=== PATIENT | female | born 1980 | race Caucasian/White ===

== ENCOUNTER → 2016-05-09 | Outpatient (CLI) | payer OTHER ==
[~2016-05-09] MED LIST: BACIPOW8 TOP; LIDOCAINE 1% MDV 20ML VIAL As Ordered ONE
--- NOTE | 2016-05-09 16:22 | REP ---
ULTRASOUND GUIDED RIGHT THYROID BIOPSY: The procedure was performed under the direct supervision of Dr. Allen. The patient has a history of a 1 cm nodule in the right thyroid seen on a previous CT scan dated 03/07/2016 as well as a previous CT scan performed on 11/08/2015 and a previous ultrasound dated 11/23/2015. The risks and benefits of the procedure were explained to the patient and informed consent was obtained. The right thyroid nodule was localized using ultrasound guidance. The skin was prepped and draped in a sterile fashion. 1% Xylocaine was used as a local anesthetic. Using ultrasound guidance a 22-gauge needle was inserted and advanced into the nodule. Approximately 1 mL of orange-colored fluid was withdrawn. The nodule completely collapsed. The patient tolerated the procedure well and there were no immediate complications. After the appropriate amount of monitored convalescence the patient was discharged from the department. Reviewed by KAUR Magallon 05/09/2016 04:57 PEdited and Signed by Forrest Allen MD 05/09/2016 05:30 P
--- NOTE | 2016-05-10 04:19 | REP ---
Clinical: Follow up thyroid cyst/nodules. Technique: Real time paula scale and color evaluation using linear high frequency transducer. Comparison: 11/23/2015. Findings: Comparison with prior examination the thyroid gland and scattered cysts/nodules are essentially unchanged. Right thyroid lobe measures 5.2 x 1.5 x 2.1 cm with a simple upper pole cyst measuring 1.1 x 2.0 x 0.8 cm and posterior mid pole nodule measuring 7.3 x 9.7 x 7.0 mm. Left thyroid lobe measures 4.6 x 1.8 x 1.7 cm demonstrating few scattered cysts/nodules up to 4 mm as well as stable lower pole nodule measuring 6.6 x 8.4 x 6.0 mm. Impression: Thyroid gland with right upper pole cyst and few scattered nodules essentially unchanged from prior examination. Signed by Nate Nielson MD 05/10/2016 04:10 A
== END ==
LOC: M RAD 11:59
DX: E04.1 Nontoxic single thyroid nodule (principal)

== ENCOUNTER 2016-05-19 07:08 | Emergency (ER) | payer OTHER ==
[~2016-05-19 07:08] MED LIST changes: -LIDOCAINE 1% MDV 20ML VIAL As Ordered ONE
--- NOTE | 2016-05-19 09:00 | REPUSA ---
CLINICAL HISTORY: Neck pain. TECHNIQUE: Multiple axial images were obtained through the cervical spine. Images were also reconstru cted in coronal and sagittal planes. The study was performed without IV contrast. COMMENTS: There is no fracture or spondylolisthesis visualized. The paraspinal soft tissues are unremarkable. T here are no lytic or blastic lesions. Straightening of cervical lordosis is seen, suggesting muscular spasm. No significant disk herniation is noted at any level. Canal and foramina remain patent. IMPRESSION: 1. No fracture or spondylolisthesis. 2. Straightening of cervical lordosis is seen, suggesting muscular spasm. Thank you for your kind referral of this patient.
--- NOTE | 2016-05-19 09:10 | REPUSA ---
CLINICAL HISTORY: Trauma. TECHNIQUE: Multiple axial CT images were obtained through the thoracic spine without IV contrast mate rial. MPR coronal and sagittal sequences were obtained. COMMENTS: There is no fracture visualized. The paraspinal soft tissues are unremarkable. There are no lytic or blastic lesions. The paravertebral soft tissue space is normal. IMPRESSION: Normal study. Thank you for your kind referral of this patient.
[2016-05-19] MEDS ORDERED: PERCOCET 5MG/325MG TAB As Ordered ONE (09:40)
[2016-05-19] MEDS ORDERED: ONDANSETRON 4 MG ORAL DISINTEGRATING TAB (S0181) As Ordered ONE (09:40)
--- NOTE | 2016-05-19 09:49 | EDDOCDS ---
Physician Documentation [facility] Name: Jacqueline Irene Age: 36 yrs Sex: Female : 1980 Arrival Date: 05/19/2016 Time: 07:08 Bed 11 Private MD: Disposition: 05/19/16 09:17 Discharged to Home/Self Care. Impression: Superficial injury of head, Alcohol abuse with intoxication. - Condition is Stable. - Discharge Instructions: Head Injury, Adult, Alcohol Intoxication, [id number]. - Medication Reconciliation, Local Pharmacy Hours form. - Follow up: Private Physician; When: Call to arrange an appointment; Reason: Continuance of care. - Problem is new. - Symptoms have improved. Historical: - Allergies: no known allergies; - Home Meds: 1. Lyrica 200mg Oral 1 cap 2 times per day 2. Zanaflex Oral 1 cap as needed (Last dose: Unknown) 3. buspirone 10 mg Oral tab 1 tab 2 times per day (Last dose: Unknown) - PMHx: Fibromyalgia; Mitral valve prolapse; - PSHx: Tubal ligation; - Social history: Smoking status: Patient uses tobacco products, current every day smoker. No barriers to communication noted, The patient speaks fluent Japanese, Speaks appropriately for age, Patient uses alcohol Patient/guardian denies using street drugs. - Family history: Not pertinent. - : The pt / caregiver states he / she is not on anticoagulants. Home medication list is obtained from the patient. - Exposure Risk Screening:: None identified. 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 2 in. (157.48 cm) (R); Pain 8/10; 07:25 BP 126 / 59 (auto/); ead 07:26 Pulse 100 MON; Resp 16; Pulse Ox 97% on R/A; ead 09:23 BP 105 / 67; Pulse 88; Resp 18; Temp 98.2(O); Pulse Ox 97% on R/A; Pain 5/10; rn1 07:15 Body Mass Index 24.51 (60.78 kg, 157.48 cm) jrd Carlos Coma Score: 07:12 Eye Response: spontaneous(4). Verbal Response: oriented(5). Motor Response: obeys ead commands(6). Total: 15. MDM: 07:22 Apply Carrie Collar to Patient. ordered. fg 07:22 CT Head Without Contrast Ordered. EDMS 07:22 CT Spine,Cervical W/o Contrast Ordered. EDMS 07:22 CT Spine,Thoracic W/o Contrast Ordered. EDMS 08:15 Financial registration complete. mm15 08:40 [facility] Payment Agreement was scanned into [employer] and attached to record. mm15 09:00 oxyCODONE-acetaminophen 5 mg-325 mg 1 tabs PO once ordered. fg 09:00 Ondansetron 4 mg PO once ordered. fg 09:37 T-Sheet-- Draft Copy was scanned into [employer] and attached to record. seh Administered Medications: 09:44 Drug: Ondansetron 4 mg [ondansetron HCl 4 mg tablet (1 tabs)] Route: PO; ead 09:46 Drug: oxyCODONE-acetaminophen 1 tabs [oxycodone-acetaminophen 5 mg-325 mg tablet (1 ead tabs)] Route: PO; Signatures: Dispatcher MedHost EDNC Bryant Coates mm15 Courtney Pina,RN RN Sayra Garcia MD MD fg Hoffert, Sarah seh The chart was reviewed and I authenticate all verbal orders and agree with the evaluation and treatment provided.Attachments: 08:40 [facility] Payment Agreement mm15 09:37 T-Sheet-- Draft Copy seh MTDD
--- NOTE | 2016-05-19 09:49 | EDDOCDS ---
Nurse's Notes [facility] Name: Jacqueline Irene Age: 36 yrs Sex: Female : 1980 Arrival Date: 05/19/2016 Time: 07:08 Bed 11 Private MD: Diagnosis: Superficial injury of head;Alcohol abuse with intoxication Presentation: 05/19 07:12 Presenting complaint: Patient states: Pt climbed in through her window last night and ead fell and hit her head on her floor. Reports LOC. Unknown time of incident. Pt reported consuming approx 6-9 alcoholic beverages last night and is unsure of some details. unknown length of LOC. Pt estimates 15-20 minutes. Mechanism of Injury: The problem was sustained at home, resulted from a fall. Adult Sepsis Screening: The patient does not have new or worsening altered mentation. Patient's respiratory rate is less than 22. Systolic blood pressure is greater than 100. Patient has a qSOFA score of 0- Negative Sepsis Screen. Suicide/Homicide risk assessment- the patient denies having any suicidal and/or homicidal ideations and does not present with any other emotional, behavioral or mental health complaints. Status: Patient is not a armored service technician or dependent. Transition of care: patient was not received from another setting of care. 07:12 Acuity: TIMOTEO Level 3 ead 07:12 Method Of Arrival: Ambulance ead Triage Assessment: 07:17 General: Appears in no apparent distress, uncomfortable, Behavior is appropriate for ead age, cooperative. Pain: Location: left frontal area and left temporal area Pain currently is 8 out of 10 on a pain scale. HIV screening NA for this visit Offered previously. The patient is triaged at the bedside. See Assessment in Nurses Notes section of ED record. Neurological: Level of Consciousness is awake, alert, obeys commands, Oriented to person, place, time, Reports headache. Respiratory: Airway is patent Respiratory effort is even, unlabored. GI: Denies nausea, vomiting, pain. Derm: Skin is pink, warm & dry. Musculoskeletal: Reports pain in back of head and back of neck. 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 Lyrica 200mg Oral 1 cap 2 times per day 2. Zanaflex Oral 1 cap as needed (Last dose: Unknown) 3. buspirone 10 mg Oral tab 1 tab 2 times per day (Last dose: Unknown) - PMHx: Fibromyalgia; Mitral valve prolapse; - PSHx: Tubal ligation; - Social history: Smoking status: Patient uses tobacco products, current every day smoker. No barriers to communication noted, The patient speaks fluent Syrian, Speaks appropriately for age, Patient uses alcohol Patient/guardian denies using street drugs. - Family history: Not pertinent. - : The pt / caregiver states he / she is not on anticoagulants. Home medication list is obtained from the patient. - Exposure Risk Screening:: None identified. Screenin:19 Screening information is obtained from the patient. Fall risk: No risks identified. ead Assistance ADL's: requires no assistance with activities of daily living. Abuse/DV Screen: The patient / caregiver reports he/she is: not in a situation that causes fear, pain or injury. Nutritional screening: No deficits noted. Advance Directives: Currently, there is no health care proxy. There is no active DNR order. There is no living will. There is no Power of School Vocational Educator. home support is adequate. Assessment: 07:19 General: see triage assessment. ead 08:00 General: Appears in no apparent distress, Behavior is cooperative. Neurological: Level ead of Consciousness is awake, alert. Respiratory: Airway is patent Respiratory effort is even, unlabored. Derm: Skin is pink, warm & dry. 09:00 General: Appears in no apparent distress, to be sleeping. Respiratory: Airway is patent ead Respiratory effort is even, unlabored. Derm: Skin is pink, warm & dry. 09:46 General: Appears in no apparent distress, comfortable, Behavior is appropriate for age, ead cooperative. Neurological: Level of Consciousness is awake, alert, obeys commands, Oriented to person, place, time. Respiratory: Airway is patent Respiratory effort is even, unlabored. Derm: Skin is pink, warm & dry. Vital Signs: 07:15 BP 117 / 72 RA Sitting (auto/reg); Pulse 84; Resp 18; Temp 96.2(O); Pulse Ox 97% on jrd R/A; Weight 60.78 kg (R); Height 5 ft. 2 in. (157.48 cm) (R); Pain 8/10; 07:25 BP 126 / 59 (auto/); ead 07:26 Pulse 100 MON; Resp 16; Pulse Ox 97% on R/A; ead 09:23 BP 105 / 67; Pulse 88; Resp 18; Temp 98.2(O); Pulse Ox 97% on R/A; Pain 5/10; rn1 07:15 Body Mass Index 24.51 (60.78 kg, 157.48 cm) jrd Vitals: 07:08 Log In Time N/A - ambulance arrival. ead [place] Coma Score: 07:12 Eye Response: spontaneous(4). Verbal Response: oriented(5). Motor Response: obeys ead commands(6). Total: 15. ED Course: 07:09 Patient visited by Eliz Hughes, Tip Puncher. deg 07:09 Patient moved to Waiting deg 07:10 Jacqueline Ortega RN is Primary Nurse. deg 07:10 Courtney Pina RN is Primary Nurse. deg 07:10 Patient moved to 11 deg 07:15 Patient visited by Mike Menendez PCA. jrd 07:15 Triage Initiated ead 07:16 Sayra Banda MD is Attending Physician. fg 07:16 Patient visited by Sayra Banda MD. fg 07:19 The patient / caregiver is instructed regarding the plan of care and ED course. Patient ead has correct armband on for positive identification. Bed in low position. Call light in reach. Side rails up X2. Pulse ox on. NIBP on. 07:30 Patient visited by Courtney Pina RN. ead 07:30 Carrie cervical collar applied. ead 08:27 Primary Nurse role handed off by Jacqueline Ortega RN jjr 08:40 [facility] Payment Agreement was scanned into Compute[employer] and attached to record. mm15 08:41 Patient visited by Courtney Pina RN. ead 09:06 CT Head Without Contrast Returned. EDMS 09:06 CT Spine,Cervical W/o Contrast Returned. EDMS 09:37 T-Sheet-- Draft Copy was scanned into ComputeNext and attached to record. seh 09:42 CT Spine,Thoracic W/o Contrast Returned. EDMS 09:46 No IV's were initiated during this patient's visit. No procedures done that require ead assistance. Administered Medications: 09:44 Drug: Ondansetron 4 mg [ondansetron HCl 4 mg tablet (1 tabs)] Route: PO; ead 09:46 Drug: oxyCODONE-acetaminophen 1 tabs [oxycodone-acetaminophen 5 mg-325 mg tablet (1 ead tabs)] Route: PO; Order Results: Radiology Order: CT Head Without Contrast Test: CT Head Without Contrast REASON FOR EXAMINATION: barreto after fall, etoh; ; CLINICAL HISTORY: Head trauma.; TECHNIQUE: Multiple axial brain CT scan sections were obtained from base to vertex without contrast a; dministration.; COMMENTS:; There is no evidence of skull fracture.; The study shows normal configuration of sella turcica. There are no intra or extra-axial collections.; There is no mass effect or midline shift. There is no evidence of hematoma formation. No hydrocephal; us is present. No abnormal calcifications are noted.; No significant abnormalities are seen either in the posterior fossa or supratentorial compartment.; The sinuses and mastoid air cells are patent.; IMPRESSION:; No evidence of acute intracranial pathology. No intracranial hemorrhage or skull fracture.; Thank you for your kind referral of this patient.; ; Radiology Order: CT Spine,Cervical W/o Contrast Test: CT Spine,Cervical W/o Contrast REASON FOR EXAMINATION: neck pain after fall; ; CLINICAL HISTORY: Neck pain.; TECHNIQUE: Multiple axial images were obtained through the cervical spine. Images were also reconstru; cted in coronal and sagittal planes. The study was performed without IV contrast.; COMMENTS:; There is no fracture or spondylolisthesis visualized. The paraspinal soft tissues are unremarkable. T; here are no lytic or blastic lesions.; Straightening of cervical lordosis is seen, suggesting muscular spasm.; No significant disk herniation is noted at any level. Canal and foramina remain patent.; IMPRESSION:; 1. No fracture or spondylolisthesis.; 2. Straightening of cervical lordosis is seen, suggesting muscular spasm.; Thank you for your kind referral of this patient.; ; Radiology Order: CT Spine,Thoracic W/o Contrast Test: CT Spine,Thoracic W/o Contrast REASON FOR EXAMINATION: back pain after fall; ; CLINICAL HISTORY: Trauma.; TECHNIQUE: Multiple axial CT images were obtained through the thoracic spine without IV contrast mate; rial. MPR coronal and sagittal sequences were obtained.; COMMENTS:; There is no fracture visualized. The paraspinal soft tissues are unremarkable. There are no lytic or; blastic lesions.; The paravertebral soft tissue space is normal.; IMPRESSION:; Normal study.; Thank you for your kind referral of this patient.; ; Outcome: 09:17 Discharge ordered by Provider. fg 09:46 Discharge Assessment: Patient awake and alert. obeys commands, Oriented to person, ead place and time. patient administered narcotics - yes. Pt provided with safe discharge. The following High Risk Discharge criteria are identified: None. Discharged to home ambulatory, with friend. Condition: stable. Discharge instructions given to patient, Instructed on discharge instructions, follow up and referral plans. Demonstrated understanding of instructions, Pt was receptive of discharge instructions/ teaching. CT Study completed. Property sent home with patient. 09:48 Patient left the ED. ead Signatures: Dispatcher MedHost EDMS Eliz Hughes, Tip Puncher Unit deg Anna Culp RN RN jjr McGrath, Marlynn mm15 Courtney Pina RN RN ead Donoghue, Joseph, PCA PCA jrd Newman, Robert rn1 Sayra Banda MD MD fg Hoffert, Sarah seh MTDD
--- NOTE | 2016-05-21 10:49 | EDDOCDS ---
Physician Documentation [facility] Name: Jacqueline Irene Age: 36 yrs Sex: Female : 1980 Arrival Date: 05/19/2016 Time: 07:08 Bed 11 Private MD: Disposition: 05/19/16 09:17 Discharged to Home/Self Care. Impression: Superficial injury of head, Alcohol abuse with intoxication. - Condition is Stable. - Discharge Instructions: Head Injury, Adult, Alcohol Intoxication, [id number]. - Medication Reconciliation, Local Pharmacy Hours form. - Follow up: Private Physician; When: Call to arrange an appointment; Reason: Continuance of care. - Problem is new. - Symptoms have improved. Historical: - Allergies: no known allergies; - Home Meds: 1. Lyrica 200mg Oral 1 cap 2 times per day 2. Zanaflex Oral 1 cap as needed (Last dose: Unknown) 3. buspirone 10 mg Oral tab 1 tab 2 times per day (Last dose: Unknown) - PMHx: Fibromyalgia; Mitral valve prolapse; - PSHx: Tubal ligation; - Social history: Smoking status: Patient uses tobacco products, current every day smoker. No barriers to communication noted, The patient speaks fluent Tunisian, Speaks appropriately for age, Patient uses alcohol Patient/guardian denies using street drugs. - Family history: Not pertinent. - : The pt / caregiver states he / she is not on anticoagulants. Home medication list is obtained from the patient. - Exposure Risk Screening:: None identified. 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 2 in. (157.48 cm) (R); Pain 8/10; 07:25 BP 126 / 59 (auto/); ead 07:26 Pulse 100 MON; Resp 16; Pulse Ox 97% on R/A; ead 09:23 BP 105 / 67; Pulse 88; Resp 18; Temp 98.2(O); Pulse Ox 97% on R/A; Pain 5/10; rn1 07:15 Body Mass Index 24.51 (60.78 kg, 157.48 cm) jrd Carlos Coma Score: 07:12 Eye Response: spontaneous(4). Verbal Response: oriented(5). Motor Response: obeys ead commands(6). Total: 15. MDM: 07:22 Apply Carrie Collar to Patient. ordered. fg 07:22 CT Head Without Contrast Ordered. EDMS 07:22 CT Spine,Cervical W/o Contrast Ordered. EDMS 07:22 CT Spine,Thoracic W/o Contrast Ordered. EDMS 08:15 Financial registration complete. mm15 08:40 [facility] Payment Agreement was scanned into Widgetbox and attached to record. mm15 09:00 oxyCODONE-acetaminophen 5 mg-325 mg 1 tabs PO once ordered. 09:00 Ondansetron 4 mg PO once ordered. 09:37 T-Sheet-- Draft Copy was scanned into Widgetbox and attached to record. se 11:14 Radiology Report was scanned into Widgetbox and attached to record. gb Administered Medications: 09:44 Drug: Ondansetron 4 mg [ondansetron HCl 4 mg tablet (1 tabs)] Route: PO; ead 09:46 Drug: oxyCODONE-acetaminophen 1 tabs [oxycodone-acetaminophen 5 mg-325 mg tablet (1 ead tabs)] Route: PO; Signatures: Dispatcher MedHost EDMA Abby Cleveland, Reg Reg judie Bryant Coates mm15 Courtney Pina RN RN ead Gill, Frances, MD MD fg Hoffert, Sarah [facility] The chart was reviewed and I authenticate all verbal orders and agree with the evaluation and treatment provided.Attachments: 08:40 [facility] Payment Agreement mm15 09:37 T-Sheet-- Draft Copy se Chart Complete MTDD
--- NOTE | 2016-05-21 10:49 | EDDOCDS ---
Physician Documentation [facility] Name: Jacqueline Irene Age: 36 yrs Sex: Female : 1980 Arrival Date: 05/19/2016 Time: 07:08 Bed 11 Private MD: Disposition: 05/19/16 09:17 Discharged to Home/Self Care. Impression: Superficial injury of head, Alcohol abuse with intoxication. - Condition is Stable. - Discharge Instructions: Head Injury, Adult, Alcohol Intoxication, [id number]. - Medication Reconciliation, Local Pharmacy Hours form. - Follow up: Private Physician; When: Call to arrange an appointment; Reason: Continuance of care. - Problem is new. - Symptoms have improved. Historical: - Allergies: no known allergies; - Home Meds: 1. Lyrica 200mg Oral 1 cap 2 times per day 2. Zanaflex Oral 1 cap as needed (Last dose: Unknown) 3. buspirone 10 mg Oral tab 1 tab 2 times per day (Last dose: Unknown) - PMHx: Fibromyalgia; Mitral valve prolapse; - PSHx: Tubal ligation; - Social history: Smoking status: Patient uses tobacco products, current every day smoker. No barriers to communication noted, The patient speaks fluent Romanian, Speaks appropriately for age, Patient uses alcohol Patient/guardian denies using street drugs. - Family history: Not pertinent. - : The pt / caregiver states he / she is not on anticoagulants. Home medication list is obtained from the patient. - Exposure Risk Screening:: None identified. 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 2 in. (157.48 cm) (R); Pain 8/10; 07:25 BP 126 / 59 (auto/); ead 07:26 Pulse 100 MON; Resp 16; Pulse Ox 97% on R/A; ead 09:23 BP 105 / 67; Pulse 88; Resp 18; Temp 98.2(O); Pulse Ox 97% on R/A; Pain 5/10; rn1 07:15 Body Mass Index 24.51 (60.78 kg, 157.48 cm) jrd Carlos Coma Score: 07:12 Eye Response: spontaneous(4). Verbal Response: oriented(5). Motor Response: obeys ead commands(6). Total: 15. MDM: 07:22 Apply Carrie Collar to Patient. ordered. fg 07:22 CT Head Without Contrast Ordered. EDMS 07:22 CT Spine,Cervical W/o Contrast Ordered. EDMS 07:22 CT Spine,Thoracic W/o Contrast Ordered. EDMS 08:15 Financial registration complete. mm15 08:40 [facility] Payment Agreement was scanned into CoupFlip and attached to record. mm15 09:00 oxyCODONE-acetaminophen 5 mg-325 mg 1 tabs PO once ordered. 09:00 Ondansetron 4 mg PO once ordered. 09:37 T-Sheet-- Draft Copy was scanned into [employer]oup[employer]ip and attached to record. se 11:14 Radiology Report was scanned into Coup[employer]ip and attached to record. gb Administered Medications: 09:44 Drug: Ondansetron 4 mg [ondansetron HCl 4 mg tablet (1 tabs)] Route: PO; ead 09:46 Drug: oxyCODONE-acetaminophen 1 tabs [oxycodone-acetaminophen 5 mg-325 mg tablet (1 ead tabs)] Route: PO; Signatures: Dispatcher MedHost EDNH Abby Cleveland, Reg Reg judie Bryant Coates mm15 Courtney Pina RN RN ead Gill, Frances, MD MD fg Hoffert, Sarah [facility] The chart was reviewed and I authenticate all verbal orders and agree with the evaluation and treatment provided.Attachments: 08:40 [facility] Payment Agreement mm15 09:37 T-Sheet-- Draft Copy se Chart Complete MTDD
--- NOTE | 2016-05-21 10:49 | EDDOCDS ---
Nurse's Notes [facility] Name: Jacqueline Irene Age: 36 yrs Sex: Female : 1980 Arrival Date: 05/19/2016 Time: 07:08 Bed 11 Private MD: Diagnosis: Superficial injury of head;Alcohol abuse with intoxication Presentation: 05/19 07:12 Presenting complaint: Patient states: Pt climbed in through her window last night and ead fell and hit her head on her floor. Reports LOC. Unknown time of incident. Pt reported consuming approx 6-9 alcoholic beverages last night and is unsure of some details. unknown length of LOC. Pt estimates 15-20 minutes. Mechanism of Injury: The problem was sustained at home, resulted from a fall. Adult Sepsis Screening: The patient does not have new or worsening altered mentation. Patient's respiratory rate is less than 22. Systolic blood pressure is greater than 100. Patient has a qSOFA score of 0- Negative Sepsis Screen. Suicide/Homicide risk assessment- the patient denies having any suicidal and/or homicidal ideations and does not present with any other emotional, behavioral or mental health complaints. 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 Transition of care: patient was not received from another setting of care. 07:12 Acuity: TIMOTEO Level 3 ead 07:12 Method Of Arrival: Ambulance ead Triage Assessment: 07:17 General: Appears in no apparent distress, uncomfortable, Behavior is appropriate for ead age, cooperative. Pain: Location: left frontal area and left temporal area Pain currently is 8 out of 10 on a pain scale. HIV screening NA for this visit Offered previously. The patient is triaged at the bedside. See Assessment in Nurses Notes section of ED record. Neurological: Level of Consciousness is awake, alert, obeys commands, Oriented to person, place, time, Reports headache. Respiratory: Airway is patent Respiratory effort is even, unlabored. GI: Denies nausea, vomiting, pain. Derm: Skin is pink, warm & dry. Musculoskeletal: Reports pain in back of head and back of neck. 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 Lyrica 200mg Oral 1 cap 2 times per day 2. Zanaflex Oral 1 cap as needed (Last dose: Unknown) 3. buspirone 10 mg Oral tab 1 tab 2 times per day (Last dose: Unknown) - PMHx: Fibromyalgia; Mitral valve prolapse; - PSHx: Tubal ligation; - Social history: Smoking status: Patient uses tobacco products, current every day smoker. No barriers to communication noted, The patient speaks fluent Chinese, Speaks appropriately for age, Patient uses alcohol Patient/guardian denies using street drugs. - Family history: Not pertinent. - : The pt / caregiver states he / she is not on anticoagulants. Home medication list is obtained from the patient. - Exposure Risk Screening:: None identified. Screenin:19 Screening information is obtained from the patient. Fall risk: No risks identified. ead Assistance ADL's: requires no assistance with activities of daily living. Abuse/DV Screen: The patient / caregiver reports he/she is: not in a situation that causes fear, pain or injury. Nutritional screening: No deficits noted. Advance Directives: Currently, there is no health care proxy. There is no active DNR order. There is no living will. 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 home support is adequate. Assessment: 07:19 General: see triage assessment. ead 08:00 General: Appears in no apparent distress, Behavior is cooperative. Neurological: Level ead of Consciousness is awake, alert. Respiratory: Airway is patent Respiratory effort is even, unlabored. Derm: Skin is pink, warm & dry. 09:00 General: Appears in no apparent distress, to be sleeping. Respiratory: Airway is patent ead Respiratory effort is even, unlabored. Derm: Skin is pink, warm & dry. 09:46 General: Appears in no apparent distress, comfortable, Behavior is appropriate for age, ead cooperative. Neurological: Level of Consciousness is awake, alert, obeys commands, Oriented to person, place, time. Respiratory: Airway is patent Respiratory effort is even, unlabored. Derm: Skin is pink, warm & dry. Vital Signs: 07:15 BP 117 / 72 RA Sitting (auto/reg); Pulse 84; Resp 18; Temp 96.2(O); Pulse Ox 97% on jrd R/A; Weight 60.78 kg (R); Height 5 ft. 2 in. (157.48 cm) (R); Pain 8/10; 07:25 BP 126 / 59 (auto/); ead 07:26 Pulse 100 MON; Resp 16; Pulse Ox 97% on R/A; ead 09:23 BP 105 / 67; Pulse 88; Resp 18; Temp 98.2(O); Pulse Ox 97% on R/A; Pain 5/10; rn1 07:15 Body Mass Index 24.51 (60.78 kg, 157.48 cm) jrd Vitals: 07:08 Log In Time N/A - ambulance arrival. ead [place] Coma Score: 07:12 Eye Response: spontaneous(4). Verbal Response: oriented(5). Motor Response: obeys ead commands(6). Total: 15. ED Course: 07:09 Patient visited by Eliz Hughes, District Manager. deg 07:09 Patient moved to Waiting deg 07:10 Jacqueline Ortega RN is Primary Nurse. deg 07:10 Courtney Pina RN is Primary Nurse. deg 07:10 Patient moved to 11 deg 07:15 Patient visited by Mike Menendez PCA. jrd 07:15 Triage Initiated ead 07:16 Sayra Banda MD is Attending Physician. fg 07:16 Patient visited by Sayra Banda MD. fg 07:19 The patient / caregiver is instructed regarding the plan of care and ED course. Patient ead has correct armband on for positive identification. Bed in low position. Call light in reach. Side rails up X2. Pulse ox on. NIBP on. 07:30 Patient visited by Courtney Pina RN. ead 07:30 Carrie cervical collar applied. ead 08:27 Primary Nurse role handed off by Jacqueline Ortega RN jjr 08:40 [facility] Payment Agreement was scanned into [employer] and attached to record. mm15 08:41 Patient visited by Courtney Pina RN. ead 09:06 CT Head Without Contrast Returned. EDMS 09:06 CT Spine,Cervical W/o Contrast Returned. EDMS 09:37 T-Sheet-- Draft Copy was scanned into HomeJ[employer] and attached to record. seh 09:42 CT Spine,Thoracic W/o Contrast Returned. EDMS 09:46 No IV's were initiated during this patient's visit. No procedures done that require ead assistance. 11:14 Radiology Report was scanned into MEDHOST and attached to record. gb Administered Medications: 09:44 Drug: Ondansetron 4 mg [ondansetron HCl 4 mg tablet (1 tabs)] Route: PO; ead 09:46 Drug: oxyCODONE-acetaminophen 1 tabs [oxycodone-acetaminophen 5 mg-325 mg tablet (1 ead tabs)] Route: PO; Order Results: Radiology Order: CT Head Without Contrast Test: CT Head Without Contrast REASON FOR EXAMINATION: barreto after fall, etoh; ; CLINICAL HISTORY: Head trauma.; TECHNIQUE: Multiple axial brain CT scan sections were obtained from base to vertex without contrast a; dministration.; COMMENTS:; There is no evidence of skull fracture.; The study shows normal configuration of sella turcica. There are no intra or extra-axial collections.; There is no mass effect or midline shift. There is no evidence of hematoma formation. No hydrocephal; us is present. No abnormal calcifications are noted.; No significant abnormalities are seen either in the posterior fossa or supratentorial compartment.; The sinuses and mastoid air cells are patent.; IMPRESSION:; No evidence of acute intracranial pathology. No intracranial hemorrhage or skull fracture.; Thank you for your kind referral of this patient.; ; Radiology Order: CT Spine,Cervical W/o Contrast Test: CT Spine,Cervical W/o Contrast REASON FOR EXAMINATION: neck pain after fall; ; CLINICAL HISTORY: Neck pain.; TECHNIQUE: Multiple axial images were obtained through the cervical spine. Images were also reconstru; cted in coronal and sagittal planes. The study was performed without IV contrast.; COMMENTS:; There is no fracture or spondylolisthesis visualized. The paraspinal soft tissues are unremarkable. T; here are no lytic or blastic lesions.; Straightening of cervical lordosis is seen, suggesting muscular spasm.; No significant disk herniation is noted at any level. Canal and foramina remain patent.; IMPRESSION:; 1. No fracture or spondylolisthesis.; 2. Straightening of cervical lordosis is seen, suggesting muscular spasm.; Thank you for your kind referral of this patient.; ; Radiology Order: CT Spine,Thoracic W/o Contrast Test: CT Spine,Thoracic W/o Contrast REASON FOR EXAMINATION: back pain after fall; ; CLINICAL HISTORY: Trauma.; TECHNIQUE: Multiple axial CT images were obtained through the thoracic spine without IV contrast mate; riaelias. MPR coronal and sagittal sequences were obtained.; COMMENTS:; There is no fracture visualized. The paraspinal soft tissues are unremarkable. There are no lytic or; blastic lesions.; The paravertebral soft tissue space is normal.; IMPRESSION:; Normal study.; Thank you for your kind referral of this patient.; ; Outcome: 09:17 Discharge ordered by Provider. fg 09:46 Discharge Assessment: Patient awake and alert. obeys commands, Oriented to person, ead place and time. patient administered narcotics - yes. Pt provided with safe discharge. The following High Risk Discharge criteria are identified: None. Discharged to home ambulatory, with friend. Condition: stable. Discharge instructions given to patient, Instructed on discharge instructions, follow up and referral plans. Demonstrated understanding of instructions, Pt was receptive of discharge instructions/ teaching. CT Study completed. Property sent home with patient. 09:48 Patient left the ED. ead Signatures: Dispatcher Med[employer] EDMS Eliz Hughes, District Manager Unit deg Abby Cleveland, Rogelio Reg Anna Owusu, RN RN Bryant Nair mm15 Courtney Pina,RN RN Mike Muller, LEVI BUILDER OPERATOR Atul Kim rn1 Sayra Banda MD MD fg Hoffert, Sarah seh Chart Complete MTDD
== END 2016-05-19 09:48 | disposition home or self-care (01) ==
LOC: M ED 07:08
DX: S09.90XA Unspecified injury of head, initial encounter (principal); W17.89XA Other fall from one level to another, initial encounter; Y92.018 Other place in single-family (private) house as the place of occurrence of the external cause; Y93.89 Activity, other specified; Y99.8 Other external cause status; F10.220 Alcohol dependence with intoxication, uncomplicated; M79.7 Fibromyalgia; I34.1 Nonrheumatic mitral (valve) prolapse; Z79.899 Other long term (current) drug therapy; F17.210 Nicotine dependence, cigarettes, uncomplicated

== ENCOUNTER 2016-06-11 23:47 | Emergency (ER) | payer OTHER ==
[2016-06-12] MEDS ORDERED: NORCO 5/325MG TABLET (BULK) As Ordered ONE (00:58)
--- NOTE | 2016-06-12 01:16 | EDDOCDS ---
Physician Documentation [facility] Name: Jacqueline Irene Age: 36 yrs Sex: Female : 1980 Arrival Date: 06/11/2016 Time: 23:47 Bed 11 Private MD: Disposition: 06/12/16 00:52 Discharged to Home/Self Care. Impression: Postconcussional syndrome. - Condition is Stable. - Discharge Instructions: Post-Concussion Syndrome. - Medication Reconciliation form. - Follow up: Juliet Manning; When: Call to arrange an appointment; Reason: Recheck today's complaints, Continuance of care, To establish care. - Problem is chronic. - Symptoms are unchanged. Historical: - Allergies: No known drug Allergies; - Home Meds: 1. Lyrica 200mg Oral 1 cap 2 times per day 2. Ambien 5 mg Oral tab 1 tab once daily 3. buspirone 10 mg Oral tab 1 tab 2 times per day patient reports stop taking medication on her own. - PMHx: Fibromyalgia; Mitral valve prolapse; - PSHx: Tubal ligation; - Social history: Smoking status: Patient uses tobacco products, heavy tobacco smoker. No barriers to communication noted, The patient speaks fluent Ukrainian, Speaks appropriately for age. - Family history: No immediate family members are acutely ill. - : The pt / caregiver states he / she is not on anticoagulants. Home medication list is obtained from the patient. - Exposure Risk Screening:: None identified. 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 1 in. (154.94 cm) (R); Pain 4/10; 06/12 00:06 BP 118 / 75 (auto/); mv5 00:08 Pulse 88 MON; Pulse Ox 97% ; mv5 00:13 BP 111 / 67 (auto/); mv5 00:14 Pulse 86 MON; Pulse Ox 97% ; mv5 00:36 BP 108 / 71 (auto/); mv5 00:37 Pulse 86 MON; Pulse Ox 97% ; mv5 01:04 Pulse 82 MON; Pulse Ox 98% ; mv5 06/11 23:49 Body Mass Index 25.89 (62.14 kg, 154.94 cm) kb5 MDM: 00:52 HYDROcodone-acetaminophen 4 pack- 5 mg-325 mg 1 packets PO Per package directions; cc10 Dispense with patient. 1 po q4h prn for pain ordered. 01:13 Financial registration complete. [facility] Administered Medications: 01:09 Drug: HYDROcodone-acetaminophen 4 pack- 1 packets [hydrocodone 5 mg-acetaminophen 325 mv5 mg tablet (1 tabs)] {Co-Signature: [email or web address] (Mady Marie RN).} Route: PO; Signatures: Maik Amezcua RN RN Mt Ramires PA-C PAArturo cc10 [place] Megan, RN RN mv5 Mady Marie RN sls1 ROGERIO
--- NOTE | 2016-06-12 01:16 | EDDOCDS ---
Nurse's Notes [facility] Name: Jacqueline Irene Age: 36 yrs Sex: Female : 1980 Arrival Date: 06/11/2016 Time: 23:47 Bed 11 Private MD: Diagnosis: Postconcussional syndrome Presentation: 06/11 23:53 Presenting complaint: Patient states: Patient reports that she has headaches, memory jmb loss, and sleep paralysis. Patient reports that the memory loss is getting worse and sleep paralysis. Patient reports headaches are new. This patient has no additional risk factors. Adult Sepsis Screening: The patient does not have new or worsening altered mentation. Patient's respiratory rate is less than 22. Systolic blood pressure is greater than 100. Patient has a qSOFA score of 0- Negative Sepsis Screen. Suicide/Homicide risk assessment- the patient denies having any suicidal and/or homicidal ideations and does not present with any other emotional, behavioral or mental health complaints. Status: Patient is not a room service associate or dependent. Transition of care: patient was not received from another setting of care. 23:53 Acuity: TIMOTEO Level 3 jmb 23:53 Method Of Arrival: Walkin/Carried/Asstd jmb Triage Assessment: 23:54 Headache History: A change in the character of the headache the patient is experiencing jmb has occured. General: Appears in no apparent distress, Behavior is appropriate for age, cooperative. Pain: Location: head Pain currently is 4 out of 10 on a pain scale. Pain began gradually Also complains of no other associated symptoms. HIV screening NA for this visit Offered previously. Neurological: Level of Consciousness is awake, alert, obeys commands, Oriented to person, place, time, Speech is normal, Facial symmetry appears normal, Facial symmetry: tongue is midline. Respiratory: Airway is patent Respiratory effort is even, unlabored, Respiratory pattern is regular, symmetrical. Derm: Skin is pink, warm & dry. 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 Lyrica 200mg Oral 1 cap 2 times per day 2. Ambien 5 mg Oral tab 1 tab once daily 3. buspirone 10 mg Oral tab 1 tab 2 times per day patient reports stop taking medication on her own. - PMHx: Fibromyalgia; Mitral valve prolapse; - PSHx: Tubal ligation; - Social history: Smoking status: Patient uses tobacco products, heavy tobacco smoker. No barriers to communication noted, The patient speaks fluent Belgian, Speaks appropriately for age. - Family history: No immediate family members are acutely ill. - : The pt / caregiver states he / she is not on anticoagulants. Home medication list is obtained from the patient. - Exposure Risk Screening:: None identified. Screenin/21 00:08 Screening information is obtained from the patient. Fall risk: No risks identified. mv5 Assistance ADL's: requires no assistance with activities of daily living. Abuse/DV Screen: The patient / caregiver reports he/she is: not in a situation that causes fear, pain or injury. Nutritional screening: No deficits noted. Advance Directives: There is no active DNR order. home support is adequate. Assessment: 00:26 General: Appears in no apparent distress, Behavior is cooperative, pleasant. Pain: mv5 Location: face, left parietal area, right parietal area, occipital area, base of the skull, left frontal area, left side of the back of head, left side of forehead, left temporal area, left occipital area, left base of the skull, right frontal area, right side of the back of head, right temporal area, right side of forehead, right occipital area and right base of the skull Pain currently is 6 out of 10 on a pain scale. Neurological: Level of Consciousness is awake, alert, Oriented to person, place, time, Moves all extremities. Speech is normal, Facial symmetry appears normal, Pupils are PERRLA. Cardiovascular: Capillary refill < 3 seconds. Respiratory: Airway is patent Respiratory effort is even, unlabored, Respiratory pattern is regular, symmetrical. Derm: Skin is pink, warm & dry. 01:06 General: Appears in no apparent distress. General: Discharge information reviewed with mv5 pt.. Pain: Pain currently is 5 out of 10 on a pain scale. Respiratory: Airway is patent Respiratory effort is even, unlabored, Respiratory pattern is regular, symmetrical. Derm: Skin is pink, warm & dry. Vital Signs: 06/11 23:49 BP 135 / 81; Pulse 99; Resp 18; Temp 98.1(O); Pulse Ox 100% on R/A; Weight 62.14 kg kb5 (M); Height 5 ft. 1 in. (154.94 cm) (R); Pain 4/10; 06/12 00:06 BP 118 / 75 (auto/); mv5 00:08 Pulse 88 MON; Pulse Ox 97% ; mv5 00:13 BP 111 / 67 (auto/); mv5 00:14 Pulse 86 MON; Pulse Ox 97% ; mv5 00:36 BP 108 / 71 (auto/); mv5 00:37 Pulse 86 MON; Pulse Ox 97% ; mv5 01:04 Pulse 82 MON; Pulse Ox 98% ; mv5 06/11 23:49 Body Mass Index 25.89 (62.14 kg, 154.94 cm) kb5 Vitals: 06/11 23:49 Log In Time: June 11, 2016 at 23:47. kb5 ED Course: 23:48 Patient visited by Daryl Smith PCA. kb5 23:48 Patient moved to Waiting kb5 23:51 Patient visited by Daryl Smith PCA. kb5 23:54 Triage Initiated jmb 23:56 Patient moved to Pre RCE jmb 06/12 00:00 Delma Sesay RN is Primary Nurse. jmb 00:00 Patient moved to 11 jmb 00:08 The patient / caregiver is instructed regarding the plan of care and ED course. mv5 00:26 Patient visited by Delma Sesay RN. mv5 00:45 Mt Ceja PA-C is PHCP. cc10 00:45 Peter Bartlett DO is Attending Physician. cc10 00:45 Patient visited by Mt Ceja PA-C. cc10 00:45 Patient visited by Mt Ceja PA-C. cc10 00:52 Juliet Manning is Referral Physician. cc10 01:04 No IV's were initiated during this patient's visit. No procedures done that require mv5 assistance. Administered Medications: 01:09 Drug: HYDROcodone-acetaminophen 4 pack- 1 packets [hydrocodone 5 mg-acetaminophen 325 mv5 mg tablet (1 tabs)] {Co-Signature: [email or web address] (Mady Marie RN).} Route: PO; Order Results: There are currently no results for this order. Outcome: 00:52 Discharge ordered by Provider. cc10 01:04 Discharge Assessment: Patient awake, alert and oriented x 3. No cognitive and/or mv5 functional deficits noted. Patient verbalized understanding of disposition instructions. patient administered narcotics - yes. Pt provided with safe discharge. The following High Risk Discharge criteria are identified: None. Discharged to home ambulatory. Condition: stable. Demonstrated understanding of Pt was receptive of discharge instructions/ teaching. No special radiology studies were completed. Property sent home with patient. 01:15 Patient left the ED. mv5 Signatures: Daryl Smith, CHANGE CONSULTANT CHANGE CONSULTANT kb5 Maik Amezcua,RN RN Mt Ramires, PA-C PA-C cc10 Delma SesayRN RN mv5 Mady Marie RN sls1 MTDD
--- NOTE | 2016-06-14 02:16 | EDDOCDS ---
Physician Documentation [facility] Name: Jacqueline Irene Age: 36 yrs Sex: Female : 1980 Arrival Date: 06/11/2016 Time: 23:47 Bed 11 Private MD: Disposition: 06/12/16 00:52 Discharged to Home/Self Care. Impression: Postconcussional syndrome. - Condition is Stable. - Discharge Instructions: Post-Concussion Syndrome. - Medication Reconciliation form. - Follow up: Juliet Manning; When: Call to arrange an appointment; Reason: Recheck today's complaints, Continuance of care, To establish care. - Problem is chronic. - Symptoms are unchanged. Historical: - Allergies: No known drug Allergies; - Home Meds: 1. Lyrica 200mg Oral 1 cap 2 times per day 2. Ambien 5 mg Oral tab 1 tab once daily 3. buspirone 10 mg Oral tab 1 tab 2 times per day patient reports stop taking medication on her own. - PMHx: Fibromyalgia; Mitral valve prolapse; - PSHx: Tubal ligation; - Social history: Smoking status: Patient uses tobacco products, heavy tobacco smoker. No barriers to communication noted, The patient speaks fluent Armenian, Speaks appropriately for age. - Family history: No immediate family members are acutely ill. - : The pt / caregiver states he / she is not on anticoagulants. Home medication list is obtained from the patient. - Exposure Risk Screening:: None identified. 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 1 in. (154.94 cm) (R); Pain 4/10; 06/12 00:06 BP 118 / 75 (auto/); mv5 00:08 Pulse 88 MON; Pulse Ox 97% ; mv5 00:13 BP 111 / 67 (auto/); mv5 00:14 Pulse 86 MON; Pulse Ox 97% ; mv5 00:36 BP 108 / 71 (auto/); mv5 00:37 Pulse 86 MON; Pulse Ox 97% ; mv5 01:04 Pulse 82 MON; Pulse Ox 98% ; mv5 06/11 23:49 Body Mass Index 25.89 (62.14 kg, 154.94 cm) kb5 MDM: 00:52 HYDROcodone-acetaminophen 4 pack- 5 mg-325 mg 1 packets PO Per package directions; cc10 Dispense with patient. 1 po q4h prn for pain ordered. 01:13 Financial registration complete. [facility] 01:18 [facility] Payment Agreement was scanned into [employer] and attached to record. hs2 12:05 T-Sheet-- Draft Copy was scanned into [employer] and attached to record. gb Administered Medications: 01:09 Drug: HYDROcodone-acetaminophen 4 pack- 1 packets [hydrocodone 5 mg-acetaminophen 325 mv5 mg tablet (1 tabs)] {Co-Signature: [email or web address] (Mady Marie RN).} Route: PO; Signatures: Abby Cleveland, Reg Reg gb Maik Amezcua, RN RN Mt Ramires, PA-C PA-C cc10 [place] [facility] Martina Tariq, Reg Reg hs2 Delma SesayRN RN mv5 Mady Marie RN sls1 The chart was reviewed and I authenticate all verbal orders and agree with the evaluation and treatment provided.Attachments: :18 [facility] Payment Agreement hs2 12:05 T-Sheet-- Draft Copy gb Chart Complete MTDD
--- NOTE | 2016-06-14 02:16 | EDDOCDS ---
Physician Documentation [facility] Name: Jacqueline Irene Age: 36 yrs Sex: Female : 1980 Arrival Date: 06/11/2016 Time: 23:47 Bed 11 Private MD: Disposition: 06/12/16 00:52 Discharged to Home/Self Care. Impression: Postconcussional syndrome. - Condition is Stable. - Discharge Instructions: Post-Concussion Syndrome. - Medication Reconciliation form. - Follow up: Juliet Manning; When: Call to arrange an appointment; Reason: Recheck today's complaints, Continuance of care, To establish care. - Problem is chronic. - Symptoms are unchanged. Historical: - Allergies: No known drug Allergies; - Home Meds: 1. Lyrica 200mg Oral 1 cap 2 times per day 2. Ambien 5 mg Oral tab 1 tab once daily 3. buspirone 10 mg Oral tab 1 tab 2 times per day patient reports stop taking medication on her own. - PMHx: Fibromyalgia; Mitral valve prolapse; - PSHx: Tubal ligation; - Social history: Smoking status: Patient uses tobacco products, heavy tobacco smoker. No barriers to communication noted, The patient speaks fluent Upper Sorbian, Speaks appropriately for age. - Family history: No immediate family members are acutely ill. - : The pt / caregiver states he / she is not on anticoagulants. Home medication list is obtained from the patient. - Exposure Risk Screening:: None identified. 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 1 in. (154.94 cm) (R); Pain 4/10; 06/12 00:06 BP 118 / 75 (auto/); mv5 00:08 Pulse 88 MON; Pulse Ox 97% ; mv5 00:13 BP 111 / 67 (auto/); mv5 00:14 Pulse 86 MON; Pulse Ox 97% ; mv5 00:36 BP 108 / 71 (auto/); mv5 00:37 Pulse 86 MON; Pulse Ox 97% ; mv5 01:04 Pulse 82 MON; Pulse Ox 98% ; mv5 06/11 23:49 Body Mass Index 25.89 (62.14 kg, 154.94 cm) kb5 MDM: 00:52 HYDROcodone-acetaminophen 4 pack- 5 mg-325 mg 1 packets PO Per package directions; cc10 Dispense with patient. 1 po q4h prn for pain ordered. 01:13 Financial registration complete. [facility] 01:18 [facility] Payment Agreement was scanned into [employer] and attached to record. hs2 12:05 T-Sheet-- Draft Copy was scanned into [employer] and attached to record. gb Administered Medications: 01:09 Drug: HYDROcodone-acetaminophen 4 pack- 1 packets [hydrocodone 5 mg-acetaminophen 325 mv5 mg tablet (1 tabs)] {Co-Signature: [email or web address] (aMdy Marie RN).} Route: PO; Signatures: Abby Cleveland, Reg Reg gb Maik Amezcua, RN RN Mt Ramires, PA-C PA-C cc10 [place] [facility] Martina Tariq, Reg Reg hs2 Delma SesayRN RN mv5 Mady Marie RN sls1 The chart was reviewed and I authenticate all verbal orders and agree with the evaluation and treatment provided.Attachments: :18 [facility] Payment Agreement hs2 12:05 T-Sheet-- Draft Copy gb Chart Complete MTDD
--- NOTE | 2016-06-14 02:16 | EDDOCDS ---
Nurse's Notes [facility] Name: Jacqueline Irene Age: 36 yrs Sex: Female : 1980 Arrival Date: 06/11/2016 Time: 23:47 Bed 11 Private MD: Diagnosis: Postconcussional syndrome Presentation: 06/11 23:53 Presenting complaint: Patient states: Patient reports that she has headaches, memory jmb loss, and sleep paralysis. Patient reports that the memory loss is getting worse and sleep paralysis. Patient reports headaches are new. This patient has no additional risk factors. Adult Sepsis Screening: The patient does not have new or worsening altered mentation. Patient's respiratory rate is less than 22. Systolic blood pressure is greater than 100. Patient has a qSOFA score of 0- Negative Sepsis Screen. Suicide/Homicide risk assessment- the patient denies having any suicidal and/or homicidal ideations and does not present with any other emotional, behavioral or mental health complaints. 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 Transition of care: patient was not received from another setting of care. 23:53 Acuity: TIMOTEO Level 3 jmb 23:53 Method Of Arrival: Walkin/Carried/Asstd jmb Triage Assessment: 23:54 Headache History: A change in the character of the headache the patient is experiencing jmb has occured. General: Appears in no apparent distress, Behavior is appropriate for age, cooperative. Pain: Location: head Pain currently is 4 out of 10 on a pain scale. Pain began gradually Also complains of no other associated symptoms. HIV screening NA for this visit Offered previously. Neurological: Level of Consciousness is awake, alert, obeys commands, Oriented to person, place, time, Speech is normal, Facial symmetry appears normal, Facial symmetry: tongue is midline. Respiratory: Airway is patent Respiratory effort is even, unlabored, Respiratory pattern is regular, symmetrical. Derm: Skin is pink, warm & dry. 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 Lyrica 200mg Oral 1 cap 2 times per day 2. Ambien 5 mg Oral tab 1 tab once daily 3. buspirone 10 mg Oral tab 1 tab 2 times per day patient reports stop taking medication on her own. - PMHx: Fibromyalgia; Mitral valve prolapse; - PSHx: Tubal ligation; - Social history: Smoking status: Patient uses tobacco products, heavy tobacco smoker. No barriers to communication noted, The patient speaks fluent Beninese, Speaks appropriately for age. - Family history: No immediate family members are acutely ill. - : The pt / caregiver states he / she is not on anticoagulants. Home medication list is obtained from the patient. - Exposure Risk Screening:: None identified. Screenin/21 00:08 Screening information is obtained from the patient. Fall risk: No risks identified. mv5 Assistance ADL's: requires no assistance with activities of daily living. Abuse/DV Screen: The patient / caregiver reports he/she is: not in a situation that causes fear, pain or injury. Nutritional screening: No deficits noted. Advance Directives: There is no active DNR order. home support is adequate. Assessment: 00:26 General: Appears in no apparent distress, Behavior is cooperative, pleasant. Pain: mv5 Location: face, left parietal area, right parietal area, occipital area, base of the skull, left frontal area, left side of the back of head, left side of forehead, left temporal area, left occipital area, left base of the skull, right frontal area, right side of the back of head, right temporal area, right side of forehead, right occipital area and right base of the skull Pain currently is 6 out of 10 on a pain scale. Neurological: Level of Consciousness is awake, alert, Oriented to person, place, time, Moves all extremities. Speech is normal, Facial symmetry appears normal, Pupils are PERRLA. Cardiovascular: Capillary refill < 3 seconds. Respiratory: Airway is patent Respiratory effort is even, unlabored, Respiratory pattern is regular, symmetrical. Derm: Skin is pink, warm & dry. 01:06 General: Appears in no apparent distress. General: Discharge information reviewed with mv5 pt.. Pain: Pain currently is 5 out of 10 on a pain scale. Respiratory: Airway is patent Respiratory effort is even, unlabored, Respiratory pattern is regular, symmetrical. Derm: Skin is pink, warm & dry. Vital Signs: 06/11 23:49 BP 135 / 81; Pulse 99; Resp 18; Temp 98.1(O); Pulse Ox 100% on R/A; Weight 62.14 kg kb5 (M); Height 5 ft. 1 in. (154.94 cm) (R); Pain 4/10; 06/12 00:06 BP 118 / 75 (auto/); mv5 00:08 Pulse 88 MON; Pulse Ox 97% ; mv5 00:13 BP 111 / 67 (auto/); mv5 00:14 Pulse 86 MON; Pulse Ox 97% ; mv5 00:36 BP 108 / 71 (auto/); mv5 00:37 Pulse 86 MON; Pulse Ox 97% ; mv5 01:04 Pulse 82 MON; Pulse Ox 98% ; mv5 06/11 23:49 Body Mass Index 25.89 (62.14 kg, 154.94 cm) kb5 Vitals: 06/11 23:49 Log In Time: June 11, 2016 at 23:47. kb5 ED Course: 23:48 Patient visited by Daryl Smith PCA. kb5 23:48 Patient moved to Waiting kb5 23:51 Patient visited by Daryl Smith PCA. kb5 23:54 Triage Initiated jmb 23:56 Patient moved to Pre RCE jmb 06/12 00:00 Delma Sesay,SUDEEP is Primary Nurse. jmb 00:00 Patient moved to 11 jmb 00:08 The patient / caregiver is instructed regarding the plan of care and ED course. mv5 00:26 Patient visited by Delma Sesay RN. mv5 00:45 Mt Ceja PA-C is PHCP. cc10 00:45 Peter Bartlett DO is Attending Physician. cc10 00:45 Patient visited by Mt Ceja PA-C. cc10 00:45 Patient visited by Mt Ceja PA-C. cc10 00:52 Juliet Manning is Referral Physician. cc10 01:04 No IV's were initiated during this patient's visit. No procedures done that require mv5 assistance. 01:18 [facility] Payment Agreement was scanned into [employer] and attached to record. hs2 12:05 T-Sheet-- Draft Copy was scanned into [employer] and attached to record. gb Administered Medications: 01:09 Drug: HYDROcodone-acetaminophen 4 pack- 1 packets [hydrocodone 5 mg-acetaminophen 325 mv5 mg tablet (1 tabs)] {Co-Signature: [email or web address] (Mady Strong RN).} Route: PO; Order Results: There are currently no results for this order. Outcome: 00:52 Discharge ordered by Provider. cc10 01:04 Discharge Assessment: Patient awake, alert and oriented x 3. No cognitive and/or mv5 functional deficits noted. Patient verbalized understanding of disposition instructions. patient administered narcotics - yes. Pt provided with safe discharge. The following High Risk Discharge criteria are identified: None. Discharged to home ambulatory. Condition: stable. Demonstrated understanding of Pt was receptive of discharge instructions/ teaching. No special radiology studies were completed. Property sent home with patient. 01:15 Patient left the ED. mv5 Signatures: Abby Cleveland, Reg Reg gb Daryl Smith, ASSEMBLER LAY UPS ASSEMBLER LAY UPS kb5 Maik Amezcua, RN RN Mt Ramires, PA-C PA-C cc10 Martina Tariq, Reg Reg hs2 Delma SesayRN RN mv5 Mady Marie RN sls1 Chart Complete MTDD
== END 2016-06-12 00:15 | disposition home or self-care (01) ==
LOC: M ED 23:47
DX: F07.81 Postconcussional syndrome (principal); M79.7 Fibromyalgia; I34.1 Nonrheumatic mitral (valve) prolapse; Z72.0 Tobacco use; Z79.899 Other long term (current) drug therapy

== ENCOUNTER → 2016-07-27 | Outpatient (CLI) | payer OTHER ==
[2016-07-29 00:06] LABS: Lyme Disease IgG/IgM Antibodie <0.91 ISR (0.00-0.90); Lyme Disease IgM Ab Quantitati <0.80 index (0.00-0.79)
== END ==
LOC: M LAB 13:53
PROVIDERS: ATTEND Physician Assistant
DX: F07.81 Postconcussional syndrome (principal)

== ENCOUNTER 2016-08-26 04:46 | Emergency (ER) | payer OTHER ==
[~2016-08-26] VITALS: Ht 157.5 cm; Wt 64.4 kg
[2016-08-26] MEDS ORDERED: LYRI200C PO (05:05)
[2016-08-26 05:10] LABS: BASO % 0.3 % (0.0-1.0); EOS # 0.2 K/mm3 (0.0-0.50); EOS % 2.3 % (0.0-3.0); LARGE UNSTAINED CELL # 0.2 K/mm3 (0.0-0.4); LYMPH # 3.4 K/mm3 (1.5-4.5); LYMPH % 32.8 % (24.0-44.0); MEAN CORPUSCULAR HEMOGLOBIN 32.6 pg (27.0-33.0); MEAN CORPUSCULAR VOLUME 98.9 fl (80.0-96.0); MONO # 0.3 K/mm3 (0.0-0.8); MONO % 3.3 % (0.0-5.0); NEUTROPHILS # 6.1 K/mm3 (1.8-7.7); NEUTROPHILS % 59.3 % (36.0-66.0); PLATELET COUNT, AUTOMATED 179 k/mm3 (150-450); RED CELL DISTRIBUTION WIDTH 13.1 % (11.5-14.5); WHITE BLOOD COUNT 10.3 K/mm3 (4.0-10.0)
[2016-08-26] MEDS ORDERED: ISOVUE-370 76% 100ML VIAL (Q9967) As Ordered ONE (05:13)
[2016-08-26] MEDS ORDERED: NS 1,000 ML IV ONE (05:15)
[2016-08-26] MEDS ORDERED: ONDANSETRON 4MG/2ML VIAL (J2405) IV ONE (05:15)
[2016-08-26 05:18] LABS: INR 0.89
[2016-08-26 05:25] LABS: CONTROL LINE HCG INT CTR LINE PRESENT
[2016-08-26 05:34] LABS: ALBUMIN 4.1 GM/DL (3.2-5.2); ALBUMIN/GLOBULIN RATIO 1.11 (1.00-1.93); ALKALINE PHOSPHATASE 79 U/L (45-117); ALT/SGPT 19 U/L (12-78); AMYLASE 58 U/L (25-115); ANION GAP 10 MEQ/L (8-16); AST/SGOT 18 U/L (15-37); BILIRUBIN,DIRECT < 0.1 MG/DL (0.0-0.2); BILIRUBIN,TOTAL 0.2 MG/DL (0.2-1.0); BLOOD UREA NITROGEN 7 MG/DL (7-18); CALCIUM LEVEL 8.2 MG/DL (8.5-10.1); CARBON DIOXIDE LEVEL 22 MEQ/L (21-32); CHLORIDE LEVEL 111 MEQ/L (98-107); CREATININE FOR GFR 0.78 MG/DL (0.55-1.02); GLOMERULAR FILTRATION RATE > 60.0 (>60); GLUCOSE, FASTING 84 MG/DL (70-105); POTASSIUM SERUM 3.5 MEQ/L (3.5-5.1); SODIUM LEVEL 143 MEQ/L (136-145); TOTAL PROTEIN 7.8 GM/DL (6.4-8.2)
[2016-08-26 06:05] LABS: ABG BASE EXCESS -5.7 (-2.0-2.0); ABG HCO3 18.8 MEQ/L (22.0-26.0); ABG PARTIAL PRESSURE O2 88.1 mmHg (75.0-100.0); ABG STANDARD HCO3 19.9 MEQ/L (22.0-26.0); ABG TOTAL CO2 19.9 MEQ/L (22.0-29.0); ABG pH (ARTERIAL) 7.361 UNITS (7.350-7.450)
[2016-08-26 06:20] LABS: METHADONE URINE NEGATIVE (NEGATIVE)
[2016-08-26] MEDS: MORPHINE 4 MG/ML 1ML SYRINGE IV PRN ×2 (06:22→06:51)
--- NOTE | 2016-08-26 07:10 | REPUSA ---
TECHNIQUE: Serial axial CT images were obtained from the skull base to the cranial vertex without int ravenous contrast. Imaging was obtained in brain and bone windows. HISTORY: TRAUMA COMPARISON: None. FINDINGS: The brain is structurally and morphologically unremarkable. The craniocervical junction appears unremarkable as seen. There is no intracranial hemorrhage and no cerebral edema appreciated. The ventricular system and sulcal markings demonstrate a satisfactory appearance. There are no abnormal extra axial fluid collections appreciated. There is no evidence of intracranial mass effect. The brain parenchyma demonstrates a satisfactory appearance throughout. The paula matter and white matter are well-differentiated and no significant parenchymal attenuation a bnormalities are appreciated. The calvarium is intact. There is moderately substantial skin and scalp laceration and contusion at t he left cranial vertex. The visualized paranasal sinuses are unremarkable. The globes and orbits are unremarkable as seen. The region of the sella appears unremarkable. The bilateral mastoids and middle ear cavities are unremarkable. IMPRESSION: 1. Unremarkable CT brain without contrast as seen at this time. There is no intracranial hemorrhage and no cerebral edema appreciated. There is no skull fracture, though there is moderately substantial skin and scalp laceration and cont usion at the left cranial vertex. Thank you for this referral and allowing us to care for your patient.
--- NOTE | 2016-08-26 07:10 | REPUSA ---
TECHNIQUE: CT of the cervical spine was performed without contrast utilizing a standard protocol. Sag ittal and coronal reformatted images were also performed. HISTORY: Trauma. COMPARISON: Exam dated 05/19/2016. FINDINGS: There is 27-degree rotatory subluxation of the [place] to the right with no atlantodental abnormality o therwise demonstrated. 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 There is straightening of the cervical spine. There is no fracture appreciated. The cervical spine and facets and spinal column and disc spaces are otherwise unremarkable. The prevertebral soft tissues and the spaces of the neck and the thoracic inlet and lung apices and t he remainder of this exam is unremarkable. IMPRESSION: 1. There is 27-degree rotatory subluxation of the [place] to the right with no atlantodental abnormalit y otherwise demonstrated. 2. There is straightening of the cervical spine. The cervical spine is otherwise unremarkable as seen. Thank you for this referral and allowing us to care for your patient.
--- NOTE | 2016-08-26 07:10 | REPUSA ---
TECHNIQUE: CT of the chest was performed following the administration of intravenous contrast. 2-D sa gittal and coronal reformatted images were also performed. HISTORY: Trauma. COMPARISON: None. FINDINGS: The thoracic inlet is unremarkable. There is a tiny cyst in the right lobe of the thyroid. The aortic arch and proximal great vessels and the thoracic aorta are unremarkable. The pulmonary vasculature is unremarkable. The heart and mediastinum and hilar regions and lungs are unremarkable. The course of the esophagus and the tracheobronchial structures are unremarkable. The visualized osseous structures and the overlying soft tissues and the remainder of this exam is un remarkable. IMPRESSION: 1. Unremarkable CT of the chest with contrast. Thank you for this referral and allowing us to care for your patient.
--- NOTE | 2016-08-26 07:10 | REPUSA ---
TECHNIQUE: CT of the maxillofacial bones was performed without contrast utilizing a standard protocol . Sagittal and coronal reformatted images were also performed. HISTORY: Trauma. COMPARISON: None. FINDINGS: The facial bones are unremarkable. There is no fracture. The nasal bones are unremarkable. The globes and orbits are unremarkable. The intracranial structures are unremarkable as seen. The bilateral infratemporal fossa is unremarkable. Incidentally, the patient is noted to be edentulous. The paranasal sinuses and mastoids and the remainder of this exam is unremarkable. IMPRESSION: 1. Unremarkable CT of the facial bones. Thank you for this referral and allowing us to care for your patient.
--- NOTE | 2016-08-26 07:20 | REPUSA ---
TECHNIQUE: CT of the abdomen and pelvis was performed following the administration of intravenous con trast. 2-D sagittal and coronal reformatted images were also performed. HISTORY: Trauma. COMPARISON: None. FINDINGS: This exam demonstrates some type of a small postsurgical metallic linear clip or device identified se emingly by itself and unrelated to any specific structure, located anterior to the antrum of the stom ach. It is unclear as to what this actually represents. This appears benign and isolated. The bowel loops and mesentery and the appendix and the internal organs and the vascular structures ar e all unremarkable. There is no free air. There is no abnormal free fluid. There is a small 2.6 x 1.4 cm left ovarian cyst and some minimal physiologic fluid in the pelvis. The osseous structures and the overlying soft tissues and the abdomen and pelvis and this exam is unr emarkable. IMPRESSION: 1. CT of the abdomen and pelvis is unremarkable. 2. This exam demonstrates some type of a small postsurgical metallic linear clip or device identified seemingly by itself and unrelated to any specific structure, located anterior to the antrum of the s tomach. It is unclear as to what this actually represents. This appears benign and isolated. Thank you for this referral and allowing us to care for your patient.
[2016-08-26] MEDS ORDERED: NS 1,000 ML IV SCH ×2 (07:45→08:55)
[2016-08-26 09:22] VITALS: BP 106/62
--- NOTE | 2016-08-26 10:18 | REP ---
LEFT HUMERUS: HISTORY: Pain after trauma. COMPARISON: None. FINDINGS: No acute fracture or destructive osseous lesion. Signed by Alexx Umaña DO 08/26/2016 10:24 A
--- NOTE | 2016-08-26 10:19 | REP ---
PORTABLE CHEST: HISTORY: Trauma. COMPARISON: 10/29/2015 The technique utilized in obtaining the radiograph has magnified the cardiac silhouette and accentuated the interstitial markings. The superior mediastinal structures are midline. The cardiac silhouette is unremarkable in size, shape, and position. The diaphragmatic surfaces of the lungs are regular, and the costophrenic angles are clear. The pulmonary russell are clear. The imaged osseous structures are intact. IMPRESSION: There is no acute cardiopulmonary disease. Signed by Alexx Umaña DO 08/26/2016 10:24 A
== END 2016-08-26 09:28 | disposition short-term general hospital (02) ==
LOC: EDBD 04:46 → M ED 08:09
DX: S01.01XA Laceration without foreign body of scalp, initial encounter (principal); Y92.410 Unspecified street and highway as the place of occurrence of the external cause; Y93.89 Activity, other specified; Y99.8 Other external cause status; N83.202 Unspecified ovarian cyst, left side; Z79.899 Other long term (current) drug therapy

== ENCOUNTER 2016-12-03 23:11 | Emergency (ER) | payer OTHER ==
[~2016-12-03] VITALS: Ht 157.5 cm; Wt 58.2 kg
[2016-12-03 23:11] VITALS: BP 103/64
[~2016-12-03 23:11] MED LIST changes: +LYRI200C PO
== END 2016-12-04 02:33 | disposition left against medical advice (07) ==
LOC: M ED 23:11
DX: M54.2 Cervicalgia (principal); Z53.21 Procedure and treatment not carried out due to patient leaving prior to being seen by health care provider

== ENCOUNTER 2017-01-04 09:10 | Emergency (ER) | payer OTHER ==
[~2017-01-04] VITALS: Ht 157.5 cm; Wt 56.8 kg
[2017-01-04] MEDS ORDERED: CYCLOBENZAPRINE 10 MG TAB PO ONE (10:00)
[2017-01-04] MEDS ORDERED: NAPROXEN 250 MG TAB PO ONE (10:00)
[2017-01-04 10:20] LABS: BASO % 0.2 % (0.0-1.0); EOS # 0.1 K/mm3 (0.0-0.50); EOS % 2.1 % (0.0-3.0); LARGE UNSTAINED CELL # 0.1 K/mm3 (0.0-0.4); LARGE UNSTAINED CELL % 1.6 % (0.0-4.0); LYMPH # 1.8 K/mm3 (1.5-4.5); LYMPH % 28.3 % (24.0-44.0); MEAN CORPUSCULAR HEMOGLOBIN 31.8 pg (27.0-33.0); MEAN CORPUSCULAR VOLUME 93.6 fl (80.0-96.0); MONO # 0.3 K/mm3 (0.0-0.8); MONO % 5.3 % (0.0-5.0); NEUTROPHILS # 3.9 K/mm3 (1.8-7.7); NEUTROPHILS % 62.4 % (36.0-66.0); PLATELET COUNT, AUTOMATED 170 k/mm3 (150-450); RED CELL DISTRIBUTION WIDTH 13.1 % (11.5-14.5); WHITE BLOOD COUNT 6.3 K/mm3 (4.0-10.0)
[2017-01-04 10:49] LABS: ANION GAP 7 MEQ/L (8-16); BLOOD UREA NITROGEN 13 MG/DL (7-18); CALCIUM LEVEL 8.6 MG/DL (8.5-10.1); CARBON DIOXIDE LEVEL 29 MEQ/L (21-32); CHLORIDE LEVEL 109 MEQ/L (98-107); CREATININE FOR GFR 0.77 MG/DL (0.55-1.02); GLOMERULAR FILTRATION RATE > 60.0 (>60); GLUCOSE, FASTING 87 MG/DL (70-105); POTASSIUM SERUM 4.1 MEQ/L (3.5-5.1); SODIUM LEVEL 145 MEQ/L (136-145)
--- NOTE | 2017-01-04 11:05 | REP ---
CERVICAL SPINE COMPLETE: 01/04/2017 CLINICAL HISTORY: Neck pain, prior history rotary subluxation of C1. COMPARISON: CT 08/25/2016, 08/26/2016. FINDINGS: Eight views are provided. There is straightening of the spine with loss of normal cervical lordosis but unchanged from the sagittal reconstructions on the previous CT in August. Disc space and vertebral body heights are intact. There is no spondylosis or spondylolisthesis. No prevertebral swelling. Posterior elements are grossly intact. Nasopharynx to the subglottic larynx are unremarkable. Excellent range of motion with flexion and extension. Dens and lateral masses do align normally on the open-mouth view. On the flexion and extension, there was no instability. Foramina are ample bilaterally. The cervicothoracic junction aligns normally on the swimmer's view. IMPRESSION: 1. Loss of normal cervical lordosis but excellent range of motion and no instability. The C1-2 relationships appear normal. No torticollis on the AP view. No rotational deformity at C1-2 is suggested. 2. Despite the good range of motion, the underlying straightening of the cervical spine might reflect some underlying spasm. Otherwise negative. Signed by Tereso Olvera MD 01/04/2017 03:52 P
[2017-01-04 11:06] LABS: ERYTHROCYTE SEDIMENTATION RATE 7 mm/hr (0-20)
[2017-01-04] MEDS ORDERED: IBUP-1022 PO (11:35)
[2017-01-04] MEDS ORDERED: CYCL10TA PO (11:35)
[2017-01-04 11:42] VITALS: BP 105/48
== END 2017-01-04 11:43 | disposition home or self-care (01) ==
LOC: M ED 09:10
DX: M43.6 Torticollis (principal); R51 Headache; F17.210 Nicotine dependence, cigarettes, uncomplicated; Z79.899 Other long term (current) drug therapy

== ENCOUNTER 2017-03-21 09:25 | Day surgery (SDC) | payer OTHER ==
[~2017-03-21] VITALS: Ht 157.5 cm; Wt 64.0 kg
[~2017-03-21 09:25] MED LIST changes: +CYCL10TA PO; +GABA-282 PO; +IBUP-1022 PO; +LABE10TAB PO; +LIPI10TA PO; +VARE1TA PO
[2017-03-21] MEDS ORDERED: LIDOCAINE 1% MDV 20ML VIAL SQ PRN (09:45)
[2017-03-21] MEDS ORDERED: LR 1,000 ML IV ONE (09:45)
[2017-03-21 10:17] LABS: CONTROL LINE UCG INT CTR LINE PRESENT
[2017-03-21] MEDS ORDERED: OXYMETAZOLINE NASAL SPRAY (AFRIN) As Ordered ONE ×2 (11:03→11:42)
[2017-03-21] MEDS ORDERED: LIDOCAINE W/EPINEPHRINE 1% 20ML VIAL As Ordered ONE (11:03)
[2017-03-21] MEDS ORDERED: EPINEPHrine 1MG/ML INJ 30ML MD-VIAL As Ordered ONE (11:36)
[2017-03-21] MEDS ORDERED: dexameTHASONE 4 MG/ML 1ML VIAL (J1100) As Ordered ONE (11:39)
[2017-03-21] MEDS ORDERED: MIDAZOLAM INJ 2 MG/2 ML VIAL (J2250) As Ordered ONE (11:41)
[2017-03-21] MEDS ORDERED: ROCURONIUM BROMIDE 50 MG/5 ML VIAL As Ordered ONE (11:41)
[2017-03-21] MEDS ORDERED: fentaNYL 250 MCG/5 ML INJECTION (J3010) As Ordered ONE (11:41)
[2017-03-21] MEDS ORDERED: PROPOFOL 200 MG/20 ML VIAL As Ordered ONE (11:41)
[2017-03-21] MEDS ORDERED: LABETALOL HCL 100 MG/20 ML VIAL As Ordered ONE (11:42)
[2017-03-21] MEDS ORDERED: GLYCOPYRROLATE INJ 0.2 MG/ML 2 ML VIAL As Ordered ONE (11:49)
[2017-03-21] MEDS ORDERED: ONDANSETRON 4MG/2ML VIAL (J2405) As Ordered ONE (11:49)
[2017-03-21] MEDS ORDERED: NEOSTIGMINE 10 MG/10 ML VIAL (J2710) As Ordered ONE (11:49)
[2017-03-21] MEDS ORDERED: METOCLOPRAMIDE INJ 10MG/2ML VIAL (J2765) As Ordered ONE (11:50)
[2017-03-21] MEDS ORDERED: ONDANSETRON 4MG/2ML VIAL (J2405) IV PRN (13:00)
[2017-03-21] MEDS ORDERED: LR 1,000 ML IV SCH (13:00)
[2017-03-21] MEDS ORDERED: ONDANSETRON 4 MG TAB (S0181) PO PRN (13:00)
[2017-03-21] MEDS ORDERED: PERCOCET 5MG/325MG TAB PO PRN ×2 (13:00)
[2017-03-21] MEDS ORDERED: METOCLOPRAMIDE INJ 10MG/2ML VIAL (J2765) IV PRN (13:00)
[2017-03-21] MEDS ORDERED: fentaNYL 100 MCG/2 ML INJECTION (J3010) IV PRN (13:00)
[2017-03-21] MEDS ORDERED: MEPERIDINE INJ 25 MG/ML VIAL (J2175) IV PRN (13:00)
[2017-03-21] MEDS ORDERED: KETOROLAC 30 MG/ML VIAL (J1885) IV PRN (13:00)
[2017-03-21 13:35] VITALS: BP 118/68
[2017-03-21] MEDS ORDERED: IBUPROFEN 800 MG TAB PO SCH ×2 (16:00→21:00)
--- NOTE | 2017-03-24 09:51 | RO ---
DATE OF PROCEDURE: 03/21/2017 PREPROCEDURE DIAGNOSIS: Deviated septum. POSTPROCEDURE DIAGNOSIS: Deviated septum. OPERATIVE PROCEDURE: Septoplasty. Partial reduction of inferior turbinates. 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 DESCRIPTION OF PROCEDURE: After satisfactory general endotracheal anesthesia administrated, pharyngeal pack placed, nose prepared for surgery by placing cotton-soaked pledgets with Afrin solution to the nasal cavity bilaterally, 1% Xylocaine with 1:1000,00 epinephrine was injected in the left nasal septum and inferior turbinates. A Endy incision was made on the left side of the nose. A mucoperichondrial flap and envelope was created on the left side of the nasal septum and carried down to the junction of the bony and cartilaginous septum. This was then with an elevator, and an envelope was then created on the right side of the septum. A Isra scissors was used to make a cut high in the perpendicular plate in the midportion of the vomer, and a central segment of the bony septum was resected. Next, with the round knife on the Crhistina elevator, a strip of cartilage was resected from the floor of the nose, mobilizing the quadrilateral cartilage and creating a swinging door. Then, a central segment of cartilaginous septum was resected, preserving a 1 cm dorsal and caudal strut. Double-action rongeur was used to take down deflected portions of the perpendicular plate, as well. Finally, the maxillary crest spur was taken down after elevating mucoperiosteum off both sides of it with a chisel. A segment of the resected cartilage was morselized and placed back into the septal envelope. The incision was closed using an interrupted #5-0 chromic suture. Then, a #4-0 plain suture was placed in a [id number] fashion through the two leaves of mucoperichondrium to appose them. Next, the inferior turbinates were medially infractured. A #15 blade was used to make an incision on the anterior tip of the inferior turbinate. With a Christina elevator, a mucoperiosteal tunnel was created on the medial side of the turbinate. Then, the microdebrider with a 2.9 mm blade was inserted into the tunnel, and the underlying turbinate bone was weakened and partially resected using the microdebrider. Then, the turbinate was laterally outfractured. The posteroinferior tip of the turbinate was then cauterized with suction cautery. Completing the surgery, Springer splints were placed into the nose and sewn to the columella with a #2-0 Prolene suture. The pharyngeal pack removed, throat suctioned and the patient was awakened, extubated, and sent to recovery in satisfactory condition. She will be discharged home on Percocet for pain, doxycycline 100 mg twice a day. She will be seen by me in the office in three days for splint removal.
== END 2017-03-21 14:13 | disposition home or self-care (01) ==
LOC: M SDC 09:25
PROVIDERS: ATTEND Specialist
DX: J34.2 Deviated nasal septum (principal); J31.0 Chronic rhinitis; E04.1 Nontoxic single thyroid nodule; K21.9 Gastro-esophageal reflux disease without esophagitis; M79.7 Fibromyalgia; Z79.899 Other long term (current) drug therapy; F41.9 Anxiety disorder, unspecified

== ENCOUNTER 2017-09-17 13:55 | Emergency (ER) | payer OTHER | END 2017-09-17 15:20 | disposition left against medical advice (07) | LOC: M ED 13:55 | DX: Z53.29 Procedure and treatment not carried out because of patient's decision for other reasons (principal) ==

== ENCOUNTER 2017-09-18 12:39 | Emergency (ER) | payer OTHER ==
[2017-09-18] MEDS ORDERED: NORCO, ANEXSIA 5/325MG TABLET (HYDROcodone/ACETAMINOPHEN) As Ordered (13:00)
== END 2017-09-18 17:07 | disposition home or self-care (01) ==
LOC: M ED 12:39
DX: S29.012A Strain of muscle and tendon of back wall of thorax, initial encounter (principal); S16.1XXA Strain of muscle, fascia and tendon at neck level, initial encounter; M25.511 Pain in right shoulder; X58.XXXA Exposure to other specified factors, initial encounter; Y92.89 Other specified places as the place of occurrence of the external cause; N39.3 Stress incontinence (female) (male); M79.604 Pain in right leg; M79.7 Fibromyalgia; M54.2 Cervicalgia; M54.6 Pain in thoracic spine; G89.29 Other chronic pain; F32.9 Major depressive disorder, single episode, unspecified; Z88.5 Allergy status to narcotic agent; Z88.6 Allergy status to analgesic agent; Z79.899 Other long term (current) drug therapy
CPT/HCPCS: 99282

== ENCOUNTER → 2017-10-28 | Outpatient (REF) | payer OTHER ==
[2017-10-28 19:36] LABS: APPEARANCE, URINE CLEAR (CLEAR); BACTERIA, URINE AUTO 1+ (NEGATIVE); BILIRUBIN, URINE AUTO NEGATIVE (NEGATIVE); BLOOD, URINE BLOOD NEGATIVE (NEGATIVE); COLOR, URINE STRAW (YELLOW); GLUCOSE, URINE (UA) AUTO NEGATIVE (NEGATIVE); KETONE, URINE AUTO NEGATIVE (NEGATIVE); LEUKOCYTE ESTERASE, URINE AUTO NEGATIVE (NEGATIVE); MUCUS, URINE SMALL (NEGATIVE); NITRITE, URINE AUTO NEGATIVE (NEGATIVE); PROTEIN, URINE AUTO NEGATIVE (NEGATIVE); RBC, URINE AUTO 1 /HPF (0-3); SPECIFIC GRAVITY URINE AUTO 1.003 (1.002-1.035); SQUAMOUS EPITHELIAL CELL UR AU 0 /HPF (0-6); UROBILINOGEN, URINE AUTO 0.2 mg/dL (0.0-2.0); WBC, URINE AUTO 0 /HPF (0-3)
[2017-10-28 20:04] LABS: ALBUMIN 4.1 GM/DL (3.2-5.2); ALBUMIN/GLOBULIN RATIO 1.41 (1.00-1.93); ALKALINE PHOSPHATASE 72 U/L (45-117); ALT/SGPT 17 U/L (12-78); ANION GAP 6 MEQ/L (8-16); AST/SGOT 13 U/L (7-37); BILIRUBIN,TOTAL 0.4 MG/DL (0.2-1.0); BLOOD UREA NITROGEN 7 MG/DL (7-18); CALCIUM LEVEL 8.8 MG/DL (8.5-10.1); CARBON DIOXIDE LEVEL 27 MEQ/L (21-32); CHLORIDE LEVEL 109 MEQ/L (98-107); GLOMERULAR FILTRATION RATE > 60.0 (>60); GLUCOSE, FASTING 77 MG/DL (70-100); POTASSIUM SERUM 3.6 MEQ/L (3.5-5.1); SODIUM LEVEL 142 MEQ/L (136-145)
== END ==
LOC: M LAB REF 18:41
DX: M54.9 Dorsalgia, unspecified (principal)

== ENCOUNTER → 2017-11-05 | Outpatient (CLI) | payer OTHER | LOC: M RAD 16:26 | DX: M43.12 Spondylolisthesis, cervical region (principal); M50.222 Other cervical disc displacement at C5-C6 level | CPT/HCPCS: 72141 ==

== ENCOUNTER 2017-12-11 20:56 | Emergency (ER) | payer OTHER | END 2017-12-11 20:58 | disposition left against medical advice (07) | LOC: M ED 20:56 | DX: Z53.21 Procedure and treatment not carried out due to patient leaving prior to being seen by health care provider (principal) ==

== ENCOUNTER 2018-02-22 19:09 | Emergency (ER) | payer OTHER ==
[2018-02-22 19:46] LABS: BASO % 0.2 % (0.0-1.0); EOS # 0.2 10^3/uL (0.0-0.50); EOS % 1.3 % (0.0-3.0); HEMATOCRIT 40.7 % (36.0-47.0); HEMOGLOBIN 13.6 g/dl (12.0-15.5); IMMATURE GRANULOCYTE % 0.4 % (0-3.0); LYMPH # 2.8 10^3/uL (1.5-4.5); LYMPH % 22.6 % (24.0-44.0); MEAN CORPUSCULAR HEMOGLOBIN 31.8 pg (27.0-33.0); MEAN CORPUSCULAR HGB CONC 33.4 g/dl (32.0-36.5); MEAN CORPUSCULAR VOLUME 95.1 fl (80.0-96.0); MONO # 0.8 10^3/uL (0.0-0.8); MONO % 6.4 % (0.0-5.0); NEUTROPHILS # 8.4 10^3/uL (1.8-7.7); NEUTROPHILS % 69.1 % (36.0-66.0); PLATELET COUNT, AUTOMATED 204 10^3/uL (150-450); RED BLOOD COUNT 4.28 10^6/uL (4.00-5.40); RED CELL DISTRIBUTION WIDTH 14.2 % (11.5-14.5); WHITE BLOOD COUNT 12.2 10^3/uL (4.0-10.0)
[2018-02-22 20:18] LABS: ALBUMIN 3.5 GM/DL (3.2-5.2); ALBUMIN/GLOBULIN RATIO 1.17 (1.00-1.93); ALKALINE PHOSPHATASE 86 U/L (45-117); ALT/SGPT 16 U/L (12-78); ANION GAP 7 MEQ/L (8-16); AST/SGOT 12 U/L (7-37); BILIRUBIN,DIRECT < 0.1 MG/DL (0.0-0.2); BILIRUBIN,TOTAL 0.2 MG/DL (0.2-1.0); BLOOD UREA NITROGEN 10 MG/DL (7-18); CALCIUM LEVEL 8.5 MG/DL (8.5-10.1); CARBON DIOXIDE LEVEL 25 MEQ/L (21-32); CHLORIDE LEVEL 112 MEQ/L (98-107); CREATININE FOR GFR 0.93 MG/DL (0.55-1.30); FREE THYROXINE INDEX 3.2 % (1.3-4.8); GLOMERULAR FILTRATION RATE > 60.0 (>60); GLUCOSE, FASTING 93 MG/DL (70-100); MAGNESIUM LEVEL 2.1 MG/DL (1.8-2.4); POTASSIUM SERUM 4.5 MEQ/L (3.5-5.1); SODIUM LEVEL 144 MEQ/L (136-145); T UPTAKE 32 % (30-39); THYROID STIMULATING HORMONE 0.279 uIU/ML (0.358-3.740); THYROXINE (T4) 9.9 UG/DL (4.5-12.0); TOTAL PROTEIN 6.5 GM/DL (6.4-8.2)
[2018-02-22] MEDS: LORazepam 1 MG TAB PO (20:21)
[2018-02-22 20:25] LABS: AMPHETAMINES LEVEL URINE NEGATIVE (NEGATIVE); BARBITURATES URINE NEGATIVE (NEGATIVE); BENZODIAZEPINES URINE NEGATIVE (NEGATIVE); CANNABINOIDS URINE NEGATIVE (NEGATIVE); COCAINE METABOLITE URINE NEGATIVE (NEGATIVE); METHADONE URINE NEGATIVE (NEGATIVE); OPIATES URINE NEGATIVE (NEGATIVE); PHENCYCLIDINE URINE NEGATIVE (NEGATIVE)
[2018-02-22 20:43] LABS: APPEARANCE, URINE CLEAR (CLEAR); BACTERIA, URINE AUTO NEGATIVE (NEGATIVE); BILIRUBIN, URINE AUTO NEGATIVE (NEGATIVE); BLOOD, URINE BLOOD 1+ (NEGATIVE); COLOR, URINE YELLOW (YELLOW); GLUCOSE, URINE (UA) AUTO NEGATIVE (NEGATIVE); KETONE, URINE AUTO NEGATIVE (NEGATIVE); LEUKOCYTE ESTERASE, URINE AUTO NEGATIVE (NEGATIVE); MUCUS, URINE SMALL (NEGATIVE); NITRITE, URINE AUTO NEGATIVE (NEGATIVE); PROTEIN, URINE AUTO NEGATIVE (NEGATIVE); RBC, URINE AUTO 6 /HPF (0-3); SPECIFIC GRAVITY URINE AUTO 1.018 (1.002-1.035); SQUAMOUS EPITHELIAL CELL UR AU 0 /HPF (0-6); UROBILINOGEN, URINE AUTO 0.2 mg/dL (0.0-2.0); WBC, URINE AUTO 3 /HPF (0-3)
[2018-02-22] MEDS: traMADol 50 MG TAB (BULK 4 TAB ED) PO (21:30)
== END 2018-02-22 21:30 | disposition home or self-care (01) ==
LOC: M ED 19:09
DX: F41.9 Anxiety disorder, unspecified (principal); R94.6 Abnormal results of thyroid function studies; R00.2 Palpitations; I10 Essential (primary) hypertension; E78.9 Disorder of lipoprotein metabolism, unspecified; Z79.899 Other long term (current) drug therapy; Z88.5 Allergy status to narcotic agent; Z88.8 Allergy status to other drugs, medicaments and biological substances; F17.210 Nicotine dependence, cigarettes, uncomplicated
CPT/HCPCS: 93005

== ENCOUNTER 2018-05-05 19:43 | Emergency (ER) | payer OTHER ==
[~2018-05-05] VITALS: Ht 157.5 cm; Wt 66.8 kg
[~2018-05-05 19:43] MED LIST changes: +ATOR1TAB19; +BACL10TA2; +CLON-412; +CLONI1TA PO; +CYCL10TA; -GABA-282 PO; +GABA-843 PO; +LABE10TAB; +PRAZ2CAP; +PROZ20CA11 PO
[2018-05-05 19:44] VITALS: BP 108/57
[2018-05-05] MEDS ORDERED: FLUOXETINE (19:56)
[2018-05-05] MEDS ORDERED: LYRI225C (19:56)
[2018-05-05] MEDS ORDERED: IBUP-1022 (19:56)
== END 2018-05-05 21:15 | disposition left against medical advice (07) ==
LOC: M ED 19:43
DX: M25.512 Pain in left shoulder (principal); Z53.21 Procedure and treatment not carried out due to patient leaving prior to being seen by health care provider

== ENCOUNTER 2018-10-09 08:13 | Emergency (ER) | payer OTHER ==
[~2018-10-09] VITALS: Ht 157.5 cm; Wt 70.9 kg
[~2018-10-09 08:13] MED LIST changes: -BACL10TA2; +BACL10TA2 PO; -CLON-412; +CLON-412 PO; +FLUOXETINE; +IBUP-1022; +LYRI225C
[2018-10-09 08:15] VITALS: BP 112/74
[2018-10-09] MEDS ORDERED: ELIQ5TAB PO (08:25)
[2018-10-09] MEDS ORDERED: LYRI150C PO (08:25)
[2018-10-09] MEDS ORDERED: NORT10CA2 PO (08:25)
[2018-10-09] MEDS ORDERED: ESCI10TA2 PO (08:25)
[2018-10-09] MEDS ORDERED: OMEP-218 PO (08:25)
[2018-10-09] MEDS ORDERED: CYCL10TA PO (08:25)
[2018-10-09] MEDS ORDERED: diazePAM 5 MG TAB PO ONE (09:45)
[2018-10-09] MEDS ORDERED: predniSONE 20 MG TAB PO ONE (09:45)
[2018-10-09] MEDS ORDERED: PRED20TA PO (09:58)
== END 2018-10-09 10:09 | disposition home or self-care (01) ==
LOC: M ED 08:13
DX: M54.2 Cervicalgia (principal); M79.7 Fibromyalgia; M25.512 Pain in left shoulder; E78.5 Hyperlipidemia, unspecified; I10 Essential (primary) hypertension; K21.9 Gastro-esophageal reflux disease without esophagitis; R51 Headache; J84.9 Interstitial pulmonary disease, unspecified; Z79.01 Long term (current) use of anticoagulants; Z79.899 Other long term (current) drug therapy; Z88.5 Allergy status to narcotic agent; Z88.6 Allergy status to analgesic agent; Z98.51 Tubal ligation status

== ENCOUNTER → 2018-10-30 | Outpatient (CLI) | payer OTHER ==
[~2018-10-30] MED LIST changes: +ELIQ5TAB PO; +ESCI10TA2 PO; +LYRI150C PO; +NORT10CA2 PO; +OMEP-218 PO; +PRED20TA PO
--- NOTE | 2018-10-31 00:22 | REP ---
Clinical: Thyroid cyst. Technique: Real time paula scale and color evaluation using linear high frequency transducer. Comparison: 05/09/2016. Findings: Right thyroid lobe measures 4.8 x 1.7 x 1.7 cm with 1.8 x 0.8 x 1.1 cm upper pole cyst (previously measuring 1.1 x 2.0 x 0.8 cm) , 1.2 x 0.6 x 0.8 cm complex mid pole solid nodule (previously measuring 0.7 x 1.0 x 0.7 cm), and 0.7 x 0.4 x 0.5 cm complex mid pole cyst. Left lobe measures 4.8 x 1.5 x 1.7 cm with 0.5 x 0.3 x 0.5 cm simple upper pole cyst, 0.7 x 0.4 x 0.6 cm simple mid pole cyst, and 1.0 x 0.5 x 0.7 cm complex mid/lower pole solid nodule (previously measuring 0.7 x 0.8 x 0.6 cm) . Isthmus measures 2.5 mm in width. Impression: Bilateral complex otherwise nonspecific nodules slightly increased in size from prior examination. Simple cyst again noted bilaterally. Electronically Signed by Nate Nielson MD 10/31/2018 12:13 A
== END ==
LOC: M RAD 12:41
PROVIDERS: ATTEND Internal Medicine
DX: E04.1 Nontoxic single thyroid nodule (principal)

== ENCOUNTER → 2018-10-31 | Outpatient (REF) | payer OTHER ==
[2018-10-31 18:47] LABS: CHLAMYDIA DNA AMPLIFICATION NEGATIVE (NEGATIVE); GC DNA AMPLIFICATION NEGATIVE (NEGATIVE)
== END ==
LOC: M LAB REF 16:45
PROVIDERS: ATTEND Obstetrics & Gynecology
DX: Z11.3 Encounter for screening for infections with a predominantly sexual mode of transmission (principal)

== ENCOUNTER → 2018-10-31 | Outpatient (REF) | payer OTHER ==
[2018-11-05 14:07] LABS: HPV HYBRID CAPTURE II Negative (Negative)
== END ==
LOC: M LAB REF 16:03
PROVIDERS: ATTEND Obstetrics & Gynecology
DX: Z12.4 Encounter for screening for malignant neoplasm of cervix (principal)

== ENCOUNTER → 2018-11-05 | Outpatient (CLI) | payer OTHER ==
--- NOTE | 2018-11-05 19:25 | REP ---
PELVIC ULTRASOUND: Real-time sonographic evaluation of the pelvis was performed utilizing transabdominal and endovaginal technique. The bladder measures 10.2 x 7.2 x 9.7 cm. The uterus measures 9.4 x 4.5 x 5.1 cm. Endometrial thickness is 10 mm. There is no endometrial fluid collection. Cluster of tiny calcifications is seen in the myometrium just anterior to the fundal endometrium. These are nonspecific. I can not exclude underlying fibroid change. Right ovary measures 3.3 x 1.8 x 1.6 cm and it contains a complex cystic structure likely representing a complex dominant follicle 2.4 x 1.4 x 1.3 cm. Left ovary is 2.7 x 1.0 x 1.9 cm. There is no other evidence of adnexal mass. There is no free fluid. Resistive index right ovary 0.51 and left ovary 0.57 with no evidence of torsion. IMPRESSION: No evidence of mass or torsion. Cluster of tiny calcifications in the anterior myometrium adjacent to the fundal endometrium. These are nonspecific and could possibly represent early fibroid changes. Electronically Signed by Tarik Whitney MD 11/09/2018 07:00 P
== END ==
LOC: M RAD 15:34
PROVIDERS: ATTEND Obstetrics & Gynecology
DX: R10.2 Pelvic and perineal pain (principal)

== ENCOUNTER → 2018-11-21 | Outpatient (CLI) | payer OTHER ==
--- NOTE | 2018-11-22 06:54 | ECHO ---
DATE OF STUDY: 11/21/2018 REFERRING PHYSICIAN: Melvin Denis MD INDICATION: Pulmonary embolism. HEIGHT: 62 inches WEIGHT: 156 pounds 2D MEASUREMENTS: Ventricular septum 0.86 cm Posterior wall 0.98 cm Left ventricle diastole 4.7 cm Left atrium 3.0 cm Aortic root 2.4 cm LVOT 2.0 cm Inferior vena cava 1.8 cm with much greater than 50% respiratory variation (transient IVC collapse) suggestive CVP 0-5 mmHg DOPPLER MEASUREMENTS: Aortic valve velocity 99.7 cm/s LVOT velocity 71.0 cm/s Mitral E velocity 71.3 cm/s Mitral A velocity 65.9 cm/s Mitral deceleration time 215 ms Trace tricuspid regurgitation Pulmonary artery systolic pressure 12 mmHg MITRAL ANNULAR TISSUE DOPPLER: E prime septal 8.9 cm/s E prime lateral 12.5 cm/s DESCRIPTION: Rhythm was sinus. This was a moderately technically difficult echocardiogram. This was a 2D, M mode, color flow Doppler and pulse wave Doppler examination and included mitral annular tissue Doppler. CONCLUSIONS: 1. Suggestive of normal pulmonary artery systolic pressure. Normal right ventricle size and systolic function. Normal right atrial size. Structurally normal appearing tricuspid leaflets. Trace tricuspid regurgitation. Suggestive of central venous pressure 0-5 mmHg. 2. Normal left ventricle internal dimensions and wall thickness. Normal regional LV wall motion and wall thickening. Normal LV systolic function. LVEF 67% (3D). Normal LV diastolic dysfunction. 3. Mild focal thickening of the aortic valve, which was three-cuspid. No aortic regurgitation. 4. No pericardial effusion.
== END ==
LOC: M CARPUL 10:32
PROVIDERS: ATTEND Internal Medicine Hematology & Oncology
DX: I26.99 Other pulmonary embolism without acute cor pulmonale (principal)

== ENCOUNTER → 2018-12-16 | Outpatient (REF) | payer OTHER | LOC: M LAB REF 17:16 | PROVIDERS: ATTEND Internal Medicine Endocrinology, Diabetes & Metabolism | DX: E04.2 Nontoxic multinodular goiter (principal) ==

== ENCOUNTER → 2019-06-02 | Outpatient (CLI) | payer OTHER ==
[~2019-06-02] MED LIST changes: +PREG200C PO
[2019-06-02 16:46] LABS: PLATELET COUNT, AUTOMATED 222 10^3/uL (150-450)
[2019-06-02 16:54] LABS: INR 1.04; PROTHROMBIN TIME 13.3 SECONDS (11.8-14.0)
[2019-06-02 16:55] LABS: PARTIAL THROMBOPLASTIN TIME 26.7 SECONDS (25.0-38.4)
== END ==
LOC: M LAB 15:54
PROVIDERS: ATTEND Physician Assistant
DX: Z01.818 Encounter for other preprocedural examination (principal); M47.892 Other spondylosis, cervical region

== ENCOUNTER 2020-05-16 15:32 | Emergency (ER) | payer OTHER ==
[~2020-05-16] VITALS: Ht 154.9 cm; Wt 78.0 kg
[~2020-05-16 15:32] MED LIST changes: +CYCL-707; +CYCL-707 PO; -CYCL10TA; -CYCL10TA PO; +ESCI10TA16 PO; -ESCI10TA2 PO; +GABA-282 PO; -GABA-843 PO; +LABE100T4; +LABE100T4 PO; -LABE10TAB; -LABE10TAB PO
[2020-05-16] MEDS ORDERED: ATEN25TA (15:49)
--- NOTE | 2020-05-16 16:24 | REP ---
INDICATION: DYSPNEA/COUGH. COMPARISON: 08/26/2016 also portable TECHNIQUE: Portable FINDINGS: The technique utilized in obtaining the radiograph has magnified the cardiac silhouette and accentuated the interstitial markings. The superior mediastinal structures are midline. The cardiac silhouette is unremarkable in size, shape, and position. The diaphragmatic surfaces of the lungs are regular, and the costophrenic angles are clear. The pulmonary russell are clear. The imaged osseous structures are intact. IMPRESSION: There is no acute cardiopulmonary disease. <Electronically signed by Alexx Umaña > 05/16/20 [id number]
[2020-05-16 16:36] LABS: BASO % 0.3 % (0.0-1.0); EOS # 0.1 10^3/uL (0.0-0.5); EOS % 1.3 % (0.0-3.0); HEMOGLOBIN 13.9 g/dl (12.0-15.5); LYMPH # 2.6 10^3/uL (1.5-5.0); LYMPH % 29.4 % (24.0-44.0); MEAN CORPUSCULAR HEMOGLOBIN 30.5 pg (27.0-33.0); MEAN CORPUSCULAR HGB CONC 33.1 g/dl (32.0-36.5); MEAN CORPUSCULAR VOLUME 92.3 fl (80.0-96.0); MONO # 0.6 10^3/uL (0.0-0.8); MONO % 6.5 % (0.0-5.0); NEUTROPHILS # 5.4 10^3/uL (1.5-8.5); PLATELET COUNT, AUTOMATED 224 10^3/uL (150-450); RED BLOOD COUNT 4.55 10^6/uL (4.00-5.40); WHITE BLOOD COUNT 8.7 10^3/uL (4.0-10.0)
[2020-05-16] MEDS ORDERED: ISOVUE-370 76% 100ML VIAL As Ordered ONE (16:36)
[2020-05-16 16:46] LABS: INR 0.96
[2020-05-16 16:56] LABS: RSV AMPLIFICATION NEGATIVE (NEGATIVE)
[2020-05-16 17:15] LABS: ALBUMIN 3.8 GM/DL (3.2-5.2); ALT/SGPT 23 U/L (12-78); BILIRUBIN,DIRECT < 0.1 MG/DL (0.0-0.2); BILIRUBIN,TOTAL 0.4 MG/DL (0.2-1.0); NT-PRO BNP 69 PG/ML (<125); THYROID STIMULATING HORMONE 0.926 uIU/ML (0.358-3.740); THYROXINE (T4) 11.5 UG/DL (4.5-12.0); TOTAL PROTEIN 7.2 GM/DL (6.4-8.2)
--- NOTE | 2020-05-16 17:30 | REPVR ---
PROCEDURE INFORMATION: Exam: CT Head Without Contrast Exam date and time: 05/16/2020 4:08 PM Age: 40 years old Clinical indication: Pain; Headache; Additional info: VARGHESE on elquis; Pui; Await poc chem 8 TECHNIQUE: Imaging protocol: Computed tomography of the head without contrast. Radiation optimization: All CT scans at this facility use at least one of these dose optimization techniques: automated exposure control; mA and/or kV adjustment per patient size (includes targeted exams where dose is matched to clinical indication); or iterative reconstruction. COMPARISON: CT Head without contrast 08/26/2016 5:16 AM FINDINGS: Brain: No hemorrhage. Unremarkable white matter for the patient's age. No mass effect. No evolving territorial infarct. Cerebral ventricles: No ventriculomegaly. Bones/joints: Unremarkable. No acute fracture. Paranasal sinuses: Visualized sinuses are unremarkable. No fluid levels. Mastoid air cells: Visualized mastoid air cells are well aerated. Chronically underpneumatized. Soft tissues: Unremarkable. IMPRESSION: No acute intracranial abnormality seen. Electronically signed by: Nia Ghotra On 05/16/2020 17:30:36 PM
--- NOTE | 2020-05-16 17:50 | REPVR ---
PROCEDURE INFORMATION: Exam: CT Angiography Chest With Contrast Exam date and time: 05/16/2020 4:08 PM Age: 40 years old Clinical indication: Pain and condition or disease; Other: History of pe; Chest pain; Additional info: VARGHESE on elquis; Pui; Await poc chem 8 TECHNIQUE: Imaging protocol: Computed tomographic angiography of the chest with intravenous contrast. 3D rendering (Not supervised by radiologist): MIP and/or 3D reconstructed images were created by the technologist. Radiation optimization: All CT scans at this facility use at least one of these dose optimization techniques: automated exposure control; mA and/or kV adjustment per patient size (includes targeted exams where dose is matched to clinical indication); or iterative reconstruction. Contrast material: ISOVUE 370; Contrast volume: 75 ml; Contrast route: INTRAVENOUS (IV); COMPARISON: CT Chest with contrast 08/26/2016 5:26 AM FINDINGS: Pulmonary arteries: Normal. No pulmonary emboli. Aorta: Unremarkable. No aortic aneurysm. No aortic dissection. Lungs: Unremarkable. No consolidation. No masses. Pleural space: Unremarkable. No pneumothorax. No pleural effusion. Heart: Unremarkable. No cardiomegaly. No pericardial effusion. Lymph nodes: Unremarkable. No enlarged lymph nodes. Bones/joints: Unremarkable. No acute fracture. Soft tissues: Unremarkable. IMPRESSION: No acute findings. Electronically signed by: Philippe Ramírez On 05/16/2020 17:50:15 PM
[2020-05-16 18:11] LABS: ETHYL ALCOHOL (ETHANOL) < 0.003 % (0.000-0.010); SALICYLATE LEVEL 3.3 MG/DL (5.0-30.0)
[2020-05-16 18:12] LABS: ACETAMINOPHEN LEVEL < 2.0 UG/ML (10.0-30.0)
[2020-05-16 19:15] VITALS: BP 112/69
--- NOTE | 2020-05-18 14:27 | ECGEPIP ---
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
== END 2020-05-16 19:25 | disposition home or self-care (01) ==
LOC: M ED 15:32
DX: R07.9 Chest pain, unspecified (principal); R60.0 Localized edema; R06.02 Shortness of breath; R51.9 Headache, unspecified; I10 Essential (primary) hypertension; E78.5 Hyperlipidemia, unspecified; G47.30 Sleep apnea, unspecified; K21.9 Gastro-esophageal reflux disease without esophagitis; M79.7 Fibromyalgia; Z86.711 Personal history of pulmonary embolism; F41.9 Anxiety disorder, unspecified; F33.9 Major depressive disorder, recurrent, unspecified; F17.200 Nicotine dependence, unspecified, uncomplicated; Z88.6 Allergy status to analgesic agent; Z79.01 Long term (current) use of anticoagulants; Z79.899 Other long term (current) drug therapy
CPT/HCPCS: 36415; 70450; 71045; 71275; 80047; 80076; 83605; 83880; 84436; 84443; 85025; 85610; 87040; 87631; 93005; 93041; 94760; 99285; G0480; Q9967

== ENCOUNTER 2020-06-11 22:12 | Emergency (ER) | payer OTHER ==
[~2020-06-11] VITALS: Ht 154.9 cm; Wt 87.0 kg
[~2020-06-11 22:12] MED LIST changes: +ATEN25TA
[2020-06-11 22:39] LABS: BASO % 0.3 % (0.0-1.0); EOS # 0.2 10^3/uL (0.0-0.5); EOS % 1.6 % (0.0-3.0); HEMATOCRIT 40.2 % (36.0-47.0); HEMOGLOBIN 12.8 g/dl (12.0-15.5); LYMPH # 3.1 10^3/uL (1.5-5.0); LYMPH % 33.1 % (24.0-44.0); MEAN CORPUSCULAR HGB CONC 31.8 g/dl (32.0-36.5); MEAN CORPUSCULAR VOLUME 91.2 fl (80.0-96.0); MONO # 0.9 10^3/uL (0.0-0.8); MONO % 9.7 % (2.0-8.0); NEUTROPHILS # 5.1 10^3/uL (1.5-8.5); NEUTROPHILS % 54.9 % (36.0-66.0); PLATELET COUNT, AUTOMATED 214 10^3/uL (150-450); RED BLOOD COUNT 4.41 10^6/uL (4.00-5.40); WHITE BLOOD COUNT 9.2 10^3/uL (4.0-10.0)
[2020-06-11 22:49] LABS: PROTHROMBIN TIME 13.4 SECONDS (12.5-14.3)
[2020-06-11 22:50] LABS: PARTIAL THROMBOPLASTIN TIME 30.3 SECONDS (24.2-38.5)
--- NOTE | 2020-06-11 23:03 | REPVR ---
PROCEDURE INFORMATION: Exam: CT Head Without Contrast Exam date and time: 06/11/2020 10:37 PM Age: 40 years old Clinical indication: Altered mental status/memory loss TECHNIQUE: Imaging protocol: Computed tomography of the head without contrast. Axial and coronal reformatted images were created and reviewed. Radiation optimization: All CT scans at this facility use at least one of these dose optimization techniques: automated exposure control; mA and/or kV adjustment per patient size (includes targeted exams where dose is matched to clinical indication); or iterative reconstruction. COMPARISON: CT Head without contrast 05/16/2020 4:53 PM FINDINGS: Brain: No CT evidence of acute intracranial hemorrhage or acute territorial infarction. No significant mass effect or midline shift. Basal cisterns patent. Cerebral ventricles: Normal in size and configuration. Bones/joints: No acute osseous abnormality. Paranasal sinuses: Unremarkable. No fluid levels. Mastoid air cells: Grossly unremarkable. Soft tissues: Grossly unremarkable. IMPRESSION: No CT evidence of acute intracranial pathology. Electronically signed by: Alton Weaver On 06/11/2020 23:02:49 PM
--- NOTE | 2020-06-11 23:05 | REPVR ---
PROCEDURE INFORMATION: Exam: XR Chest, 2 Views Exam date and time: 06/11/2020 10:24 PM Age: 40 years old Clinical indication: Other: Chest pain TECHNIQUE: Imaging protocol: XR of the chest Views: 2 views. COMPARISON: CR PORTABLE CHEST X-RAY 05/16/2020 4:18 PM FINDINGS: Lungs: Unremarkable. No consolidation. Pleural spaces: Unremarkable. No pleural effusion. No pneumothorax. Heart/Mediastinum: Unremarkable. No cardiomegaly. Bones/joints: Unremarkable. IMPRESSION: No acute radiographic findings. Electronically signed by: Alton Weaver On 06/11/2020 23:06:04 PM
[2020-06-11 23:22] LABS: ALBUMIN 3.8 GM/DL (3.2-5.2); ALT/SGPT 36 U/L (12-78); BILIRUBIN,DIRECT 0.1 MG/DL (0.0-0.2); BILIRUBIN,TOTAL 0.5 MG/DL (0.2-1.0); BLOOD UREA NITROGEN 14 MG/DL (7-18); CALCIUM LEVEL 8.9 MG/DL (8.5-10.1); CARBON DIOXIDE LEVEL 28 MEQ/L (21-32); CHLORIDE LEVEL 105 MEQ/L (98-107); CK-MB VALUE MASS 1.8 NG/ML (<3.6); CPK CREATINE PHOSPHOKINASE 223 U/L (26-192); CREATININE FOR GFR 0.97 MG/DL (0.55-1.30); ETHYL ALCOHOL (ETHANOL) < 0.003 % (0.000-0.010); GLOMERULAR FILTRATION RATE > 60.0 (>60); GLUCOSE, FASTING 79 MG/DL (70-100); LIPASE 71 U/L (73-393); MB/CK RELATIVE INDEX 0.81 (< OR =4); POTASSIUM SERUM 3.4 MEQ/L (3.5-5.1); SODIUM LEVEL 140 MEQ/L (136-145); TOTAL PROTEIN 6.9 GM/DL (6.4-8.2); TROPONIN I < 0.02 NG/ML (< 0.10)
[2020-06-11] MEDS ORDERED: NS 1,000 ML IV ONE (23:30)
[2020-06-11] MEDS ORDERED: POTASSIUM CHLORIDE 10 MEQ SR TABLET PO ONE (23:30)
[2020-06-11] MEDS ORDERED: ISOVUE-370 76% 100ML VIAL As Ordered ONE (23:32)
--- NOTE | 2020-06-12 00:23 | REPVR ---
PROCEDURE INFORMATION: Exam: CT Angiography Chest With Contrast Exam date and time: 06/11/2020 11:53 PM Age: 40 years old Clinical indication: Chest pain TECHNIQUE: Imaging protocol: Computed tomographic angiography of the chest with contrast. Axial, coronal and sagittal reformatted images were created and reviewed. 3D rendering (Not supervised by radiologist): MIP and/or 3D reconstructed images were created by the technologist. Radiation optimization: All CT scans at this facility use at least one of these dose optimization techniques: automated exposure control; mA and/or kV adjustment per patient size (includes targeted exams where dose is matched to clinical indication); or iterative reconstruction. Contrast material: ISOVUE 370; Contrast volume: 75 ml; Contrast route: INTRAVENOUS (IV); COMPARISON: CT ANGIO CHEST 05/16/2020 4:53 PM FINDINGS: Pulmonary arteries: Contrast opacification satisfactory. No intraluminal filling defect. Aorta: Unremarkable. No aneurysm or dissection. Lungs: Unremarkable. No consolidation. No mass. Pleural spaces: Unremarkable. No pneumothorax. No pleural effusion. Heart: Unremarkable. No cardiomegaly. No pericardial effusion. Lymph nodes: No pathologically enlarged lymph nodes. Bones/joints: No acute osseous abnormality. Soft tissues: Unremarkable. IMPRESSION: No CT evidence of pulmonary embolism. Electronically signed by: Alton Weaver On 06/12/2020 00:24:04 AM
[2020-06-12 00:53] LABS: AMPHETAMINES LEVEL URINE NEGATIVE (NEGATIVE); BARBITURATES URINE NEGATIVE (NEGATIVE); BENZODIAZEPINES URINE NEGATIVE (NEGATIVE); CANNABINOIDS URINE NEGATIVE (NEGATIVE); COCAINE METABOLITE URINE NEGATIVE (NEGATIVE); METHADONE URINE NEGATIVE (NEGATIVE); OPIATES URINE NEGATIVE (NEGATIVE); PHENCYCLIDINE URINE NEGATIVE (NEGATIVE)
[2020-06-12 05:15] LABS: CK-MB VALUE MASS 1.1 NG/ML (<3.6); CPK CREATINE PHOSPHOKINASE 158 U/L (26-192); TROPONIN I < 0.02 NG/ML (< 0.10)
[2020-06-12 06:03] VITALS: BP 133/69
--- NOTE | 2020-06-12 09:29 | ECGEPIP ---
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
--- NOTE | 2020-06-12 14:57 | ECGEPIP ---
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
== END 2020-06-12 06:05 | disposition home or self-care (01) ==
LOC: M ED 22:12
DX: R07.9 Chest pain, unspecified (principal); R05 Cough; R42 Dizziness and giddiness; I10 Essential (primary) hypertension; E78.5 Hyperlipidemia, unspecified; M79.7 Fibromyalgia; Z86.711 Personal history of pulmonary embolism; F41.9 Anxiety disorder, unspecified; F33.9 Major depressive disorder, recurrent, unspecified; Z88.6 Allergy status to analgesic agent; Z79.01 Long term (current) use of anticoagulants; Z79.899 Other long term (current) drug therapy
CPT/HCPCS: 70450; 71046; 71275; 80048; 80076; 80307; 81001; 82077; 82550; 82553; 83690; 84439; 84443; 85025; 85610; 85730; 93005; 93041; 94760; 96360; 96361; 99285; Q9967

== ENCOUNTER 2020-08-11 00:52 | Emergency (ER) | payer OTHER ==
[~2020-08-11] VITALS: Ht 154.9 cm; Wt 73.9 kg
--- NOTE | 2020-08-11 01:49 | REPVR ---
PROCEDURE INFORMATION: Exam: CT Head Without Contrast Exam date and time: 08/11/2020 1:26 AM Age: 40 years old Clinical indication: Numbness / parasthesia; Left; Additional info: CVA - nursing interventions must not delay CT TECHNIQUE: Imaging protocol: Computed tomography of the head without contrast. Axial and coronal reformatted images were created and reviewed. Radiation optimization: All CT scans at this facility use at least one of these dose optimization techniques: automated exposure control; mA and/or kV adjustment per patient size (includes targeted exams where dose is matched to clinical indication); or iterative reconstruction. COMPARISON: CT Head without contrast 06/11/2020 10:37 PM FINDINGS: Brain: No CT evidence of acute intracranial hemorrhage or acute territorial infarction. No significant mass effect or midline shift. Basal cisterns patent. Cerebral ventricles: Normal in size and configuration. Bones/joints: No acute osseous abnormality. Paranasal sinuses: Unremarkable. No fluid levels. Mastoid air cells: Underpneumatized. Soft tissues: Grossly unremarkable. IMPRESSION: 1. No CT evidence of acute intracranial pathology. 2. Additional findings, as above. Electronically signed by: Alton Weaver On 08/11/2020 01:48:59 AM
[2020-08-11 01:56] LABS: BASO % 0.4 % (0.0-1.0); EOS # 0.2 10^3/uL (0.0-0.5); HEMATOCRIT 39.5 % (36.0-47.0); HEMOGLOBIN 12.8 g/dl (12.0-15.5); LYMPH # 2.2 10^3/uL (1.5-5.0); LYMPH % 29.8 % (24.0-44.0); MEAN CORPUSCULAR HGB CONC 32.4 g/dl (32.0-36.5); MEAN CORPUSCULAR VOLUME 92.5 fl (80.0-96.0); MONO # 0.8 10^3/uL (0.0-0.8); MONO % 10.2 % (2.0-8.0); NEUTROPHILS # 4.2 10^3/uL (1.5-8.5); NEUTROPHILS % 57.3 % (36.0-66.0); PLATELET COUNT, AUTOMATED 216 10^3/uL (150-450); RED BLOOD COUNT 4.27 10^6/uL (4.00-5.40); WHITE BLOOD COUNT 7.4 10^3/uL (4.0-10.0)
[2020-08-11 02:08] LABS: INR 1.3; PROTHROMBIN TIME 16.5 SECONDS (12.5-14.3)
[2020-08-11 02:09] LABS: PARTIAL THROMBOPLASTIN TIME 30.7 SECONDS (24.2-38.5)
[2020-08-11 02:24] LABS: HCG, SERUM QUALITATIVE NEGATIVE (NEGATIVE)
[2020-08-11 02:26] LABS: ALBUMIN 3.8 GM/DL (3.2-5.2); ALT/SGPT 29 U/L (12-78); BILIRUBIN,DIRECT 0.1 MG/DL (0.0-0.2); BILIRUBIN,TOTAL 0.3 MG/DL (0.2-1.0); BLOOD UREA NITROGEN 6 MG/DL (7-18); CALCIUM LEVEL 8.5 MG/DL (8.5-10.1); CARBON DIOXIDE LEVEL 28 MEQ/L (21-32); CHLORIDE LEVEL 110 MEQ/L (98-107); CK-MB VALUE MASS 1.2 NG/ML (<3.6); CPK CREATINE PHOSPHOKINASE 170 U/L (26-192); CREATININE FOR GFR 0.74 MG/DL (0.55-1.30); GLOMERULAR FILTRATION RATE > 60.0 (>60); GLUCOSE, FASTING 99 MG/DL (70-100); MB/CK RELATIVE INDEX 0.71 (< OR =4); POTASSIUM SERUM 3.1 MEQ/L (3.5-5.1); SODIUM LEVEL 144 MEQ/L (136-145); TOTAL PROTEIN 6.8 GM/DL (6.4-8.2); TROPONIN I < 0.02 NG/ML (< 0.10)
--- NOTE | 2020-08-11 03:12 | REPVR ---
PROCEDURE INFORMATION: Exam: XR Chest Exam date and time: 08/11/2020 1:26 AM Age: 40 years old Clinical indication: Other: CVA TECHNIQUE: Imaging protocol: XR of the chest. Views: 1 view. COMPARISON: CR Chest, 2 view PA, Lat 06/11/2020 10:45 PM FINDINGS: Lungs: Unremarkable. No consolidation. Pleural spaces: Unremarkable. No pleural effusion. No pneumothorax. Heart/Mediastinum: Unremarkable. No cardiomegaly. Bones/joints: Unremarkable. IMPRESSION: No acute infiltrates. Electronically signed by: Jorge Holguin On 08/11/2020 03:12:34 AM
[2020-08-11] MEDS ORDERED: POTASSIUM CHLORIDE 10 MEQ SR TABLET PO ONE (03:25)
[2020-08-11 03:37] LABS: ETHYL ALCOHOL (ETHANOL) < 0.003 % (0.000-0.010)
[2020-08-11 04:45] VITALS: BP 124/76
[2020-08-11] MEDS ORDERED: NORCO, ANEXSIA 5/325MG TABLET (HYDROcodone/ACETAMINOPHEN) PO ONE (04:45)
[2020-08-11] MEDS ORDERED: KETOROLAC TROMETHAMINE 10 MG TAB PO ONE (04:50)
--- NOTE | 2020-08-11 13:06 | ECGEPIP ---
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
== END 2020-08-11 05:01 | disposition home or self-care (01) ==
LOC: M ED 00:52
DX: R20.2 Paresthesia of skin (principal); E87.6 Hypokalemia; I10 Essential (primary) hypertension; E78.5 Hyperlipidemia, unspecified; F19.10 Other psychoactive substance abuse, uncomplicated; Z88.6 Allergy status to analgesic agent

== ENCOUNTER 2020-12-08 15:48 | Emergency (ER) | payer OTHER ==
[~2020-12-08] VITALS: Ht 154.9 cm; Wt 64.5 kg
[2020-12-08 16:11] VITALS: BP 118/82
== END 2020-12-08 16:23 | disposition left against medical advice (07) ==
LOC: M ED 15:48 → EDBD 15:48 → M ED 16:23
DX: R07.9 Chest pain, unspecified (principal); Z53.9 Procedure and treatment not carried out, unspecified reason; I10 Essential (primary) hypertension; F32.9 Major depressive disorder, single episode, unspecified; F41.9 Anxiety disorder, unspecified; Z86.711 Personal history of pulmonary embolism; Z79.01 Long term (current) use of anticoagulants; Z79.899 Other long term (current) drug therapy; Z88.5 Allergy status to narcotic agent; F17.200 Nicotine dependence, unspecified, uncomplicated

== ENCOUNTER 2020-12-28 11:30 | Emergency (ER) | payer OTHER ==
[~2020-12-28] VITALS: Ht 154.9 cm; Wt 64.7 kg
[2020-12-28 14:23] VITALS: BP 116/78
== END 2020-12-28 14:15 | disposition home or self-care (01) ==
LOC: M ED 11:30
DX: F43.0 Acute stress reaction (principal); F19.10 Other psychoactive substance abuse, uncomplicated; F10.10 Alcohol abuse, uncomplicated; I10 Essential (primary) hypertension; E78.5 Hyperlipidemia, unspecified; K21.9 Gastro-esophageal reflux disease without esophagitis; M79.7 Fibromyalgia; F17.200 Nicotine dependence, unspecified, uncomplicated; Z88.5 Allergy status to narcotic agent; Z79.01 Long term (current) use of anticoagulants; Z79.899 Other long term (current) drug therapy

== ENCOUNTER → 2023-07-25 | Outpatient (REF) ==
[~2023-07-25] MED LIST changes: -LABE100T4; -LABE100T4 PO; +LABE100T6; +LABE100T6 PO; +OMEP-173 PO; -OMEP-218 PO; -PREG200C PO; +PREG200C2 PO
== END ==
LOC: M LAB 13:03
PROVIDERS: ATTEND Nurse Practitioner Adult Health
DX: Z00.00 Encounter for general adult medical examination without abnormal findings (principal)

== ENCOUNTER 2023-10-19 17:27 | Emergency (ER) | payer OTHER ==
[~2023-10-19] VITALS: Ht 157.5 cm; Wt 84.1 kg
[2023-10-19 17:31] VITALS: BP 131/91; TEMP 98.9; O2SAT 97
[2023-10-19] MEDS ORDERED: ONDA-282 (17:52)
[2023-10-19] MEDS ORDERED: HYDR200T46 (17:52)
[2023-10-19] MEDS ORDERED: NS 1,000 ML IV ONE (18:10)
[2023-10-19] MEDS ORDERED: MULTIVITAMIN -ADULT INJECTION 10 ML, THIAMINE INJection 100 MG, FOLIC ACID 1 MG in NS 1... IV ONE (18:30)
== END 2023-10-19 19:53 | disposition home or self-care (01) ==
LOC: M ED 17:27
DX: F19.10 Other psychoactive substance abuse, uncomplicated (principal); M79.7 Fibromyalgia; I10 Essential (primary) hypertension; K21.9 Gastro-esophageal reflux disease without esophagitis; F41.9 Anxiety disorder, unspecified; Z79.01 Long term (current) use of anticoagulants; Z79.83 Long term (current) use of bisphosphonates; Z79.899 Other long term (current) drug therapy

== ENCOUNTER 2023-11-10 12:30 | Emergency (ER) | payer MEDICAID, OTHER, SELFPAY ==
[~2023-11-10] VITALS: Ht 157.5 cm; Wt 82.8 kg
[~2023-11-10 12:30] MED LIST changes: +HYDR200T46; +ONDA-282
[2023-11-10 12:31] VITALS: BP 139/96; TEMP 98; O2SAT 97
[2023-11-10] MEDS ORDERED: ARIP1TAB6 (12:48)
[2023-11-10] MEDS ORDERED: DOXE50CA (12:48)
== END 2023-11-10 14:55 | disposition left against medical advice (07) ==
LOC: M ED 12:30
DX: Z53.21 Procedure and treatment not carried out due to patient leaving prior to being seen by health care provider (principal)

== ENCOUNTER 2024-01-19 16:11 | Emergency (ER) | payer MEDICAID, OTHER ==
[~2024-01-19] VITALS: Ht 157.5 cm; Wt 79.5 kg
[~2024-01-19 16:11] MED LIST changes: +ARIP1TAB6; +DOXE50CA PO; +GABA-1172 PO; -GABA-282 PO; -HYDR200T46; +HYDR200T46 PO
[2024-01-19 17:40] LABS: BASO % 0.5 % (0.0-1.0); EOS # 0.1 10^3/uL (0.0-0.5); EOS % 1.4 % (0.0-3.0); HEMATOCRIT 42.8 % (36.0-47.0); HEMOGLOBIN 14.5 g/dl (12.0-15.5); LYMPH # 2.6 10^3/uL (1.5-5.0); LYMPH % 32.5 % (24.0-44.0); MEAN CORPUSCULAR HEMOGLOBIN 30.7 pg (27.0-33.0); MEAN CORPUSCULAR HGB CONC 33.9 g/dl (32.0-36.5); MEAN CORPUSCULAR VOLUME 90.5 fl (80.0-96.0); MONO # 0.5 10^3/uL (0.0-0.8); MONO % 6.6 % (2.0-8.0); NEUTROPHILS # 4.7 10^3/uL (1.5-8.5); NEUTROPHILS % 58.8 % (36.0-66.0); PLATELET COUNT, AUTOMATED 201 10^3/uL (150-450); RED BLOOD COUNT 4.73 10^6/uL (4.00-5.40)
[2024-01-19 18:05] LABS: CPK CREATINE PHOSPHOKINASE 99 U/L (34-145)
[2024-01-19 18:06] LABS: BLOOD UREA NITROGEN 17 MG/DL (9-23); CARBON DIOXIDE LEVEL 28 MMOL/L (20-31); CHLORIDE LEVEL 107 MMOL/L (98-107); CK-MB VALUE MASS < 1.0 NG/ML (<3.6); CREATININE FOR GFR 0.97 MG/DL (0.55-1.30); GLOMERULAR FILTRATION RATE > 60.0 (>58); GLUCOSE, FASTING 95 MG/DL (60-100); MB/CK RELATIVE INDEX 0.95 (< OR =4); MB/CK RELATIVE INDEX 1.01 (< OR =4); POTASSIUM SERUM 3.2 MMOL/L (3.5-5.1); SODIUM LEVEL 141 MMOL/L (136-145)
[2024-01-19 18:10] LABS: THYROID STIMULATING HORMONE 0.902 uIU/ML (0.55-4.78)
[2024-01-19] MEDS ORDERED: ISOVUE-370 76% 100ML VIAL As Ordered ONE (18:41)
[2024-01-19] MEDS: POTASSIUM CHLORIDE 10MEQ SR TABLET PO ONE (18:58)
[2024-01-19 19:00] VITALS: TEMP 98.8
[2024-01-19] MEDS ORDERED: MELA10CA PO (19:49)
[2024-01-19] MEDS ORDERED: CLON-412 PO (19:51)
[2024-01-19] MEDS ORDERED: DOXA1TAB41 PO (19:52)
[2024-01-19] MEDS ORDERED: HOME MED LIST COMPLETE! XX SCH (19:55)
[2024-01-19 19:58] VITALS: BP 141/72; O2SAT 98
== END 2024-01-19 20:40 | disposition left against medical advice (07) ==
LOC: M ED 16:11
DX: R07.9 Chest pain, unspecified (principal); I10 Essential (primary) hypertension; M79.7 Fibromyalgia; E05.90 Thyrotoxicosis, unspecified without thyrotoxic crisis or storm; F17.200 Nicotine dependence, unspecified, uncomplicated; F10.10 Alcohol abuse, uncomplicated; F19.10 Other psychoactive substance abuse, uncomplicated; Z86.79 Personal history of other diseases of the circulatory system; Z86.711 Personal history of pulmonary embolism; Z79.01 Long term (current) use of anticoagulants; Z79.899 Other long term (current) drug therapy; Z88.1 Allergy status to other antibiotic agents; Z88.5 Allergy status to narcotic agent; Z53.9 Procedure and treatment not carried out, unspecified reason
CPT/HCPCS: 36415; 71045; 71275; 80048; 82550; 82553; 84443; 84484; 85025; 87040; 87076; 93005; 93041; 94760; 99285; Q9967

== ENCOUNTER 2024-03-22 05:13 | Emergency (ER) | payer OTHER ==
[~2024-03-22] VITALS: Ht 157.5 cm; Wt 86.2 kg
[~2024-03-22 05:13] MED LIST changes: +DOXA1TAB41 PO; +MELA10CA PO
[2024-03-22 06:12] LABS: BASO % 0.3 % (0.0-1.0); EOS # 0.1 10^3/uL (0.0-0.5); EOS % 1.3 % (0.0-3.0); HEMATOCRIT 42.2 % (36.0-47.0); HEMOGLOBIN 14.2 g/dl (12.0-15.5); LYMPH # 2.2 10^3/uL (1.5-5.0); LYMPH % 27.3 % (24.0-44.0); MEAN CORPUSCULAR HEMOGLOBIN 30.5 pg (27.0-33.0); MEAN CORPUSCULAR HGB CONC 33.6 g/dl (32.0-36.5); MEAN CORPUSCULAR VOLUME 90.6 fl (80.0-96.0); MONO # 0.5 10^3/uL (0.0-0.8); MONO % 6.2 % (2.0-8.0); NEUTROPHILS # 5.1 10^3/uL (1.5-8.5); NEUTROPHILS % 64.6 % (36.0-66.0); PLATELET COUNT, AUTOMATED 203 10^3/uL (150-450); RED BLOOD COUNT 4.66 10^6/uL (4.00-5.40); WHITE BLOOD COUNT 7.9 10^3/uL (4.0-10.0)
[2024-03-22 06:39] LABS: LIPASE 40 U/L (12-53)
[2024-03-22 06:41] LABS: ALBUMIN 3.5 G/DL (3.2-5.2); ALKALINE PHOSPHATASE 96 U/L (35-104); ALT/SGPT 15 U/L (7.0-40); AST/SGOT 9 U/L (<34); BILIRUBIN,DIRECT 0.2 MG/DL (<0.4); BILIRUBIN,TOTAL 0.7 MG/DL (0.3-1.2); CK-MB VALUE MASS < 1.0 NG/ML (<3.6); CPK CREATINE PHOSPHOKINASE 67 U/L (34-145); MB/CK RELATIVE INDEX 1.49 (< OR =4); TOTAL PROTEIN 6.9 G/DL (5.7-8.2)
[2024-03-22 06:54] LABS: INR 1.04; PROTHROMBIN TIME 13.9 SECONDS (12.5-14.5)
[2024-03-22 07:56] LABS: CK-MB VALUE MASS < 1.0 NG/ML (<3.6); CPK CREATINE PHOSPHOKINASE 79 U/L (34-145); MB/CK RELATIVE INDEX 1.26 (< OR =4)
[2024-03-22 08:16] VITALS: BP 113/55; TEMP 97; O2SAT 98
== END 2024-03-22 08:36 | disposition home or self-care (01) ==
LOC: EDBD 05:13 → EDUNIT# 05:13 → M ED 05:13
DX: R07.9 Chest pain, unspecified (principal); I34.1 Nonrheumatic mitral (valve) prolapse; I10 Essential (primary) hypertension; F41.9 Anxiety disorder, unspecified; F17.200 Nicotine dependence, unspecified, uncomplicated; Z88.1 Allergy status to other antibiotic agents; Z88.5 Allergy status to narcotic agent; Z86.711 Personal history of pulmonary embolism; Z79.01 Long term (current) use of anticoagulants; F19.11 Other psychoactive substance abuse, in remission; Z79.899 Other long term (current) drug therapy

== ENCOUNTER → 2024-06-01 | Outpatient (CLI) | payer OTHER | LOC: M CARPUL 15:02 | PROVIDERS: ATTEND Nurse Practitioner Adult Health | DX: I34.1 Nonrheumatic mitral (valve) prolapse (principal) ==

== ENCOUNTER → 2024-06-30 | Outpatient (CLI) | payer OTHER ==
[2024-06-30 14:38] LABS: BASO % 0.4 % (0.0-1.0); EOS # 0.1 10^3/uL (0.0-0.5); EOS % 1.8 % (0.0-3.0); HEMATOCRIT 40.7 % (36.0-47.0); HEMOGLOBIN 13.9 g/dl (12.0-15.5); LYMPH # 2.1 10^3/uL (1.5-5.0); LYMPH % 37.5 % (24.0-44.0); MEAN CORPUSCULAR HGB CONC 34.2 g/dl (32.0-36.5); MEAN CORPUSCULAR VOLUME 90.6 fl (80.0-96.0); MONO # 0.3 10^3/uL (0.0-0.8); NEUTROPHILS % 54.1 % (36.0-66.0); PLATELET COUNT, AUTOMATED 229 10^3/uL (150-450); RED BLOOD COUNT 4.49 10^6/uL (4.00-5.40); WHITE BLOOD COUNT 5.5 10^3/uL (4.0-10.0)
[2024-06-30 15:07] LABS: IRON (FE) 74 UG/DL (50-170); PERCENT SATURATION 24.7 % (13.2-45.0); TOTAL IRON BINDING CAPACITY 299 UG/DL (250-425)
[2024-06-30 15:08] LABS: FREE T4 1.01 NG/DL (0.89-1.76); HCG, SERUM QUALITATIVE NEGATIVE (NEGATIVE)
[2024-06-30 15:09] LABS: FERRITIN 19.8 NG/ML (7.3-270.7); THYROID STIMULATING HORMONE 0.446 uIU/ML (0.55-4.78)
== END ==
LOC: M LAB 13:55
PROVIDERS: ATTEND Physician Assistant
DX: D64.9 Anemia, unspecified (principal); E66.9 Obesity, unspecified

== ENCOUNTER 2024-11-08 02:23 | Emergency (ER) | payer OTHER ==
[~2024-11-08] VITALS: Ht 157.5 cm; Wt 84.6 kg
[~2024-11-08 02:23] MED LIST changes: +MIRT-10
[2024-11-08 02:32] VITALS: BP 127/77; TEMP 98.6; O2SAT 99
== END 2024-11-08 02:50 | disposition left against medical advice (07) ==
LOC: EDBD 02:23 → M ED 02:23
DX: Z53.21 Procedure and treatment not carried out due to patient leaving prior to being seen by health care provider (principal)

== ENCOUNTER 2025-01-23 17:32 | Emergency (ER) | payer OTHER ==
[~2025-01-23 17:32] MED LIST changes: -IBUP-1022; -IBUP-1022 PO; +IBUP600T42; +IBUP600T42 PO; -MIRT-10; +MIRT-10 PO; +PRAZ2CAP PO; -PROZ20CA11 PO; +PROZ20CA12 PO
[2025-01-23] MEDS ORDERED: POTA1TAB23 PO (19:56)
[2025-01-23] MEDS ORDERED: ALBU8.5H INH (19:56)
[2025-01-23 19:58] LABS: BARBITURATES URINE NEGATIVE (NEGATIVE); BENZODIAZEPINES URINE NEGATIVE (NEGATIVE); CANNABINOIDS URINE NEGATIVE (NEGATIVE); COCAINE METABOLITE URINE NEGATIVE (NEGATIVE); METHADONE URINE NEGATIVE (NEGATIVE); OPIATES URINE NEGATIVE (NEGATIVE); PHENCYCLIDINE URINE NEGATIVE (NEGATIVE)
[2025-01-23 20:01] LABS: AMPHETAMINES LEVEL URINE POSITIVE (NEGATIVE); PLATELET COUNT, AUTOMATED 222 10^3/uL (150-450)
[2025-01-23 20:21] LABS: ALT/SGPT 135 U/L (7.0-40); AST/SGOT 258 U/L (<34); CALCIUM LEVEL 9.7 MG/DL (8.5-10.1); CARBON DIOXIDE LEVEL 24 MMOL/L (20-31); CHLORIDE LEVEL 108 MMOL/L (98-107); CREATININE FOR GFR 0.84 MG/DL (0.55-1.30); GLOMERULAR FILTRATION RATE 88.9 (>58); POTASSIUM SERUM 3.6 MMOL/L (3.5-5.1); SALICYLATE LEVEL < 3.0 MG/DL (<30); SODIUM LEVEL 144 MMOL/L (136-145)
[2025-01-23 20:22] LABS: ETHYL ALCOHOL (ETHANOL) 0.003 % (0.000-0.010)
[2025-01-23 20:27] LABS: HCG, SERUM QUALITATIVE NEGATIVE (NEGATIVE)
[2025-01-23 23:55] VITALS: BP 123/79; TEMP 97.1; O2SAT 95
== END 2025-01-24 00:17 | disposition home or self-care (01) ==
LOC: M ED 17:32
DX: F19.10 Other psychoactive substance abuse, uncomplicated (principal); Z88.5 Allergy status to narcotic agent; Z88.1 Allergy status to other antibiotic agents; Z79.52 Long term (current) use of systemic steroids; Z79.01 Long term (current) use of anticoagulants; Z79.899 Other long term (current) drug therapy

== ENCOUNTER 2025-01-25 13:19 | Emergency (ER) | payer OTHER ==
[~2025-01-25] VITALS: Ht 157.5 cm; Wt 79.5 kg
[2025-01-25 13:29] VITALS: BP 119/74; TEMP 97.3; O2SAT 99
== END 2025-01-25 14:34 | disposition left against medical advice (07) ==
LOC: EDBD 13:19 → M ED 13:19
DX: Z53.21 Procedure and treatment not carried out due to patient leaving prior to being seen by health care provider (principal)

== ENCOUNTER → 2025-01-25 | Outpatient (REF) | payer OTHER ==
[~2025-01-25] MED LIST changes: +ALBU8.5H INH; +POTA1TAB23 PO
[2025-01-25 21:21] LABS: APPEARANCE, URINE CLEAR (CLEAR); BACTERIA, URINE AUTO 1+ (NEGATIVE); BILIRUBIN, URINE AUTO NEGATIVE (NEGATIVE); BLOOD, URINE BLOOD 2+ (NEGATIVE); GLUCOSE, URINE (UA) AUTO NEGATIVE (NEGATIVE); KETONE, URINE AUTO NEGATIVE (NEGATIVE); LEUKOCYTE ESTERASE, URINE AUTO 2+ (NEGATIVE); NITRITE, URINE AUTO NEGATIVE (NEGATIVE); PROTEIN, URINE AUTO NEGATIVE (NEGATIVE); RBC, URINE AUTO 1 /HPF (0-3); SPECIFIC GRAVITY URINE AUTO 1.002 (1.002-1.035); SQUAMOUS EPITHELIAL CELL UR AU 3 /HPF (0-6); UROBILINOGEN, URINE AUTO 0.2 mg/dL (0.0-2.0); WBC, URINE AUTO 3 /HPF (0-3)
== END ==
LOC: M LAB REF 20:46
DX: N39.0 Urinary tract infection, site not specified (principal)